=== PATIENT | male | born 1950 | race Caucasian/White ===

== ENCOUNTER → 2018-09-06 09:38 | Outpatient (CLI) | payer BC, MEDICARE, SELFPAY | PROVIDERS: PCP Family Medicine; Visit Provider Family Medicine | DX: E11.621 Type 2 diabetes mellitus with foot ulcer (principal); L97.522 Non-pressure chronic ulcer of other part of left foot with fat layer exposed; L97.512 Non-pressure chronic ulcer of other part of right foot with fat layer exposed; L08.9 Local infection of the skin and subcutaneous tissue, unspecified | CPT/HCPCS: 11042; 87070; 87075; 87077; 87147; 87186; 87205; 99214 ==

== ENCOUNTER 2018-09-11 14:18 | Emergency (ER) | payer BC, MEDICARE, SELFPAY ==
[2018-09-11 14:25] VITALS: BP 149/81; PULSE 69; RESP 20; TEMP 36.1; O2SAT 95; BMI 33.6
--- NOTE | 2018-09-11 16:02 | ED.RECABL ---
HPI - Recheck/Abnormal Lab/Rx <Charlene Yung PA-C - Last Filed: 09/11/18 22:36> General Chief Complaint: Recheck/Abnormal Lab/Rx Stated Complaint: WOUND CULTURE CAME BACK WITH [facility] Time Seen by Provider: 09/11/18 16:17 Source: patient and old records reviewed Mode of arrival: ambulatory Limitations: no limitations History of Present Illness HPI narrative: This 68-year-old gentleman is sent to ED by the nurse from [facility] due to recent culture coming back showing E coli. He he was treated for a chronic right foot ulceration. He states that this is looking much better after Dr. Xiong debrided it. He has not had any new drainage, worsening pain or swelling. Wound has not been red. He has not had any new fever. He has been taking doxycycline for about 5 days. His PCP called him today and sent in a prescription for Levaquin for him and advised changing to this. He states that he has had some ongoing fatigue and poor appetite for at least 10 days, but again no fever. He denies any chest or abdominal pain. No difficulty breathing or pain in the extremities. He is not feeling any different today than prior to his last wound care visit aside from the wound actually being better. Review of Systems <Charlene Yung PA-C - Last Filed: 09/11/18 22:36> Review of Systems All systems reviewed & are unremarkable except as noted in HPI and below Exam <Charlene Yung PA-C - Last Filed: 09/11/18 22:36> Narrative Exam Narrative: GENERAL APPEARANCE: Patient sitting comfortably, appears well LUNGS: Clear to auscultation bilaterally. HEART: Rate and rhythm regular without murmur, normal S1 and S2, no S3 or S4. DERMATOLOGIC: L. 1st MT head there is a debrided wound, not actively draining, but there is some serous drainage on the dressing. No erythema, effusion or tenderness Initial Vital Signs Initial Vital Signs: Vital Signs Temperature 97.0 F L 09/11/18 14:25 Pulse Rate 69 09/11/18 14:25 Respiratory Rate 20 09/11/18 14:25 Blood Pressure 149/81 H 09/11/18 14:25 Pulse Oximetry 95 09/11/18 14:25 <Rylie Kemp DO - Last Filed: 09/12/18 19:56> Initial Vital Signs Initial Vital Signs: Vital Signs Temperature 97.0 F L 09/11/18 14:25 Pulse Rate 69 09/11/18 14:25 Respiratory Rate 20 09/11/18 14:25 Blood Pressure 149/81 H 09/11/18 14:25 Pulse Oximetry 95 09/11/18 14:25 Course <Charlene Yung PA-C - Last Filed: 09/11/18 22:36> Course Narrative: Patient is feeling at baseline today. He has not had any acute changes and in fact his ft wound is getting better. Not clear whether E coli finding on his culture was a contaminant. He has been on appropriate antibiotics to treat the 3 strains of staphylococci is on the culture, and susceptible to Levaquin which has already been prescribed by his PCP. He will pick this up today and started, and will follow up with her as planned tomorrow. Advised to discuss his ongoing fatigue at that time. Orders Ordered: ED Orders 09/11/18 14:08 Complete Blood Count AUTO DIFF Stat Comprehensive Metabolic Panel Stat Lactate (Lactic Acid) Stat Vital Signs - 8 hr 09/11/18 17:15 Pulse Rate 66 Respiratory Rate 20 Blood Pressure 144/83 H Pulse Oximetry 95 <Rylie Kemp DO - Last Filed: 09/12/18 19:56> Orders Ordered: ED Orders 09/11/18 14:08 Complete Blood Count AUTO DIFF Stat Comprehensive Metabolic Panel Stat Lactate (Lactic Acid) Stat Vital Signs - 8 hr 09/11/18 17:15 Pulse Rate 66 Respiratory Rate 20 Blood Pressure 144/83 H Pulse Oximetry 95 MDM - Recheck/Abnormal Lab/Rx <Charlene Yung PA-C - Last Filed: 09/11/18 22:36> Lab Data Attestation: I reviewed the patient's lab results. Result diagrams: 09/11/18 14:08 09/11/18 14:08 Lab Results 09/11/18 09/11/18 09/11/18 Range/Units 14:08 14:08 14:08 WBC 8.6 (4.5-11.0) X10^3/uL RBC 5.35 (4.5-5.9) X10^6/uL Hgb 15.6 (13.5-17.5) g/dL Hct 46.5 (41-53) % MCV 86.9 (80-100) fL MCH 29.2 (26-34) PG MCHC 33.6 (30-36) % RDW 13.5 (11.6-14.8) % Plt Count 257 (150-400) X10^3/uL Neut % (Auto) 66.6 (50-75) % Lymph % (Auto) 21.9 L (25-40) % [place] % (Auto) 7.9 (3-14) % Eos % (Auto) 2.8 (2-4) % Baso % (Auto) 0.8 (0-2) % Neut # (Auto) 5700 (9817-0320) /uL Sodium 141 (137-145) mmol/L Potassium 3.8 (3.4-5.1) mmol/L Chloride 103 (98-107) mmol/L Carbon Dioxide 24 (22-32) mmol/L BUN 19 (9-20) mg/dL Creatinine 0.60 L (0.66-1.25) mg/dL Estimated GFR > 60.0 (>60) mL/min BUN/Creatinine Ratio 31.7 H (6-22) Glucose 161 H (80-110) mg/dL Lactate 1.5 (0.7-2.1) mmol/L Calcium 9.4 (8.4-10.2) mg/dL Total Bilirubin 0.3 (0.2-1.3) mg/dL AST 20 (17-59) IU/L ALT 28 (21-72) IU/L Alkaline Phosphatase 81 (38-126) U/L Total Protein 7.4 (6.3-8.2) g/dL Albumin 4.3 (3.5-5.0) g/dL Globulin 3.1 (1.7-4.1) g/dL Albumin/Globulin Ratio 1.4 (1.0-2.8) <Rylie Kemp, DO - Last Filed: 09/12/18 19:56> Lab Data Lab Results 09/11/18 09/11/18 09/11/18 Range/Units 14:08 14:08 14:08 WBC 8.6 (4.5-11.0) X10^3/uL RBC 5.35 (4.5-5.9) X10^6/uL Hgb 15.6 (13.5-17.5) g/dL Hct 46.5 (41-53) % MCV 86.9 (80-100) fL MCH 29.2 (26-34) PG MCHC 33.6 (30-36) % RDW 13.5 (11.6-14.8) % Plt Count 257 (150-400) X10^3/uL Neut % (Auto) 66.6 (50-75) % Lymph % (Auto) 21.9 L (25-40) % [place] % (Auto) 7.9 (3-14) % Eos % (Auto) 2.8 (2-4) % Baso % (Auto) 0.8 (0-2) % Neut # (Auto) 5700 (5921-5266) /uL Sodium 141 (137-145) mmol/L Potassium 3.8 (3.4-5.1) mmol/L Chloride 103 (98-107) mmol/L Carbon Dioxide 24 (22-32) mmol/L BUN 19 (9-20) mg/dL Creatinine 0.60 L (0.66-1.25) mg/dL Estimated GFR > 60.0 (>60) mL/min BUN/Creatinine Ratio 31.7 H (6-22) Glucose 161 H (80-110) mg/dL Lactate 1.5 (0.7-2.1) mmol/L Calcium 9.4 (8.4-10.2) mg/dL Total Bilirubin 0.3 (0.2-1.3) mg/dL AST 20 (17-59) IU/L ALT 28 (21-72) IU/L Alkaline Phosphatase 81 (38-126) U/L Total Protein 7.4 (6.3-8.2) g/dL Albumin 4.3 (3.5-5.0) g/dL Globulin 3.1 (1.7-4.1) g/dL Albumin/Globulin Ratio 1.4 (1.0-2.8) Discharge Plan Departure Patient Disposition: Home Clinical Impression: Wound of foot Discharge Date/Time: 09/11/18 17:15 Interventions: ED Discharge Assessment Last Done: 09/11/18 17:15 Instructions: Skin Wound Activity Restrictions/Additional Instructions: Please return if you have any acutely worsening symptoms. There are no acute problems found on your lab work and since you have not had any changes in how your feeling today, it is reasonable for you to return home. Change your doxycycline to the Levaquin that Dr. Allred sent in for you. Please see here for follow-up tomorrow as you have planned, and let her know about your ongoing fatigue and poor appetite as well as your elevated morning blood sugar as these could be related. Continue your current wound care as advised by Dr. Xiong Referrals: Michael Xiong MD [Physician] - Sam Allred DO [Primary Care Provider] - <Rylie Kemp DO - Last Filed: 09/12/18 19:56> Cosign ED Attending Alysonature Attestation: I was immediately available in the department for consultation. Documentation has been reviewed. I agree with assessment and plan.
[2018-09-11 16:16] LABS: Add Manual Diff / Slide Review NO; Basophils Percent Auto 0.8 % (0-2); Eosinophils Percent Auto 2.8 % (2-4); Hematocrit 46.5 % (41-53); Hemoglobin 15.6 g/dL (13.5-17.5); Lymphocytes Percent Auto 21.9 % (25-40); Mean Corpuscular HGB Conc 33.6 % (30-36); Mean Corpuscular Hemoglobin 29.2 PG (26-34); Mean Corpuscular Volume 86.9 fL (80-100); Monocytes Percent Auto 7.9 % (3-14); Neutrophils Absolute Auto 5700 /uL (1500-7000); Neutrophils Percent Auto 66.6 % (50-75); Platelet Count 257 X10^3/uL (150-400); Red Blood Cell Count 5.35 X10^6/uL (4.5-5.9); Red Cell Distribution Width 13.5 % (11.6-14.8); White Blood Cell Count 8.6 X10^3/uL (4.5-11.0)
--- NOTE | 2018-09-11 16:18 | PC.NURSE ---
Sent from wound clinic as wound on foot cultured e coli. Labs drawn. Provider to see
[2018-09-11 16:25] LABS: Alanine Aminotransferase 28 IU/L (21-72); Albumin 4.3 g/dL (3.5-5.0); Albumin Globulin Ratio 1.4 (1.0-2.8); Alkaline Phosphatase 81 U/L (38-126); Aspartate Aminotransferase 20 IU/L (17-59); BUN Creatinine Ratio 31.7 (6-22); Bilirubin Total 0.3 mg/dL (0.2-1.3); Blood Urea Nitrogen 19 mg/dL (9-20); Calcium 9.4 mg/dL (8.4-10.2); Carbon Dioxide 24 mmol/L (22-32); Chloride 103 mmol/L (98-107); Estimated Glomerular Filt Rate > 60.0 mL/min (>60); Globulin 3.1 g/dL (1.7-4.1); Glucose 161 mg/dL (80-110); HEMOLYSIS < 15 (0-50); Potassium 3.8 mmol/L (3.4-5.1); Sodium 141 mmol/L (137-145); Total Protein 7.4 g/dL (6.3-8.2)
[2018-09-11 16:26] LABS: Lactate (Lactic Acid) 1.5 mmol/L (0.7-2.1)
[2018-09-11 17:15] VITALS: BP 144/83; PULSE 66; RESP 20; O2SAT 95
== END 2018-09-11 17:15 | disposition home or self-care (01) ==
PROVIDERS: Emergency Provider Internal Medicine; PCP Family Medicine
DX: L97.519 Non-pressure chronic ulcer of other part of right foot with unspecified severity (principal); B96.20 Unspecified Escherichia coli [E. coli] as the cause of diseases classified elsewhere
CPT/HCPCS: 36415; 80053; 83605; 85025; 99282; 99283

== ENCOUNTER → 2018-09-20 14:06 | Outpatient (CLI) | payer BC, MEDICARE, SELFPAY | PROVIDERS: PCP Family Medicine; Visit Provider Family Medicine | DX: E11.621 Type 2 diabetes mellitus with foot ulcer (principal); L97.521 Non-pressure chronic ulcer of other part of left foot limited to breakdown of skin; L97.511 Non-pressure chronic ulcer of other part of right foot limited to breakdown of skin; L08.9 Local infection of the skin and subcutaneous tissue, unspecified | CPT/HCPCS: 11042 ==

== ENCOUNTER → 2018-09-25 14:26 | Outpatient (CLI) | payer BC, MEDICARE, SELFPAY | PROVIDERS: PCP Family Medicine; Visit Provider Family Medicine | DX: E11.621 Type 2 diabetes mellitus with foot ulcer (principal); E11.40 Type 2 diabetes mellitus with diabetic neuropathy, unspecified; L97.521 Non-pressure chronic ulcer of other part of left foot limited to breakdown of skin; L97.511 Non-pressure chronic ulcer of other part of right foot limited to breakdown of skin; L08.9 Local infection of the skin and subcutaneous tissue, unspecified | CPT/HCPCS: 97597 ==

== ENCOUNTER → 2018-10-02 10:03 | Outpatient (CLI) | payer BC, MEDICARE, SELFPAY | PROVIDERS: PCP Family Medicine; Visit Provider Family Medicine | DX: E11.621 Type 2 diabetes mellitus with foot ulcer (principal); L97.521 Non-pressure chronic ulcer of other part of left foot limited to breakdown of skin; L97.511 Non-pressure chronic ulcer of other part of right foot limited to breakdown of skin | CPT/HCPCS: 97597 ==

== ENCOUNTER → 2018-10-07 08:55 | Outpatient (CLI) | payer BC, MEDICARE, SELFPAY | PROVIDERS: PCP Family Medicine; Visit Provider Family Medicine | DX: E11.621 Type 2 diabetes mellitus with foot ulcer (principal); L97.511 Non-pressure chronic ulcer of other part of right foot limited to breakdown of skin | CPT/HCPCS: 11042 ==

== ENCOUNTER → 2018-10-14 08:45 | Outpatient (CLI) | payer BC, MEDICARE, SELFPAY | PROVIDERS: PCP Family Medicine; Visit Provider Podiatrist Primary Podiatric Medicine | DX: E11.621 Type 2 diabetes mellitus with foot ulcer (principal); L97.512 Non-pressure chronic ulcer of other part of right foot with fat layer exposed | CPT/HCPCS: 11042 ==

== ENCOUNTER → 2018-10-22 13:16 | Outpatient (CLI) | payer BC, MEDICARE, SELFPAY | PROVIDERS: PCP Family Medicine; Visit Provider Family Medicine | DX: E11.621 Type 2 diabetes mellitus with foot ulcer (principal); L97.516 Non-pressure chronic ulcer of other part of right foot with bone involvement without evidence of necrosis | CPT/HCPCS: 11042; 87070; 87075; 87077; 87147; 87186; 87205 ==

== ENCOUNTER → 2018-10-31 09:35 | Outpatient (CLI) | payer BC, MEDICARE, SELFPAY | PROVIDERS: PCP Family Medicine; Visit Provider Family Medicine | DX: E11.621 Type 2 diabetes mellitus with foot ulcer (principal); L97.514 Non-pressure chronic ulcer of other part of right foot with necrosis of bone | CPT/HCPCS: 20220; 87070; 87075; 87077; 87186; 87205; 99213 ==

== ENCOUNTER → 2018-11-04 09:17 | Outpatient (CLI) | payer BC, MEDICARE, SELFPAY ==
--- NOTE | 2018-11-04 | DI.RAD.S_ITS ---
PROCEDURE: XR FOOT RT MIN 3V INDICATIONS: Type 2 diabetes mellitus with foot ulcer/EVAL FOR OSTEO TECHNIQUE: 3 views of the foot were acquired. COMPARISON: [facility], CR, TOE MINIMUM 2 VIEWS RIGHT, 03/14/2017, 9:07. [facility], CR, XR TOE(S) RIGHT, 08/29/2017, 13:45. FINDINGS: Bones: Prior amputation of the second digit from the metatarsal head level and the third digit has been amputated from the proximal phalangeal base level. Osteolucency involves the second metatarsal head as well as the fifth distal interphalangeal joint. Moderate hallux valgus metatarsus prima varus alignment redemonstrated and medial bunion. Calcaneal spurring. Soft tissues: No tibiotalar joint effusion. Achilles tendon appears normal. Soft tissue gas noted within the soft tissues adjacent to the second and third metatarsal heads. IMPRESSION: 1. Prior amputations as above. 2. Bony osteolucency involving the second metatarsal head and fifth distal phalanx suspicious for osteomyelitis. Dictated by: Sherwin MAGANA Interpreted: Stanislav Bundy MD on 11/04/2018 at 9:50 Approved by: Stanislav Bundy M.D. on 11/04/2018 at 14:19
[2018-11-04 10:10] LABS: Add Manual Diff / Slide Review NO; Basophils Absolute Auto 100 /uL (0-100); Basophils Percent Auto 0.8 % (0-2); Eosinophils Absolute Auto 200 /uL (0-450); Eosinophils Percent Auto 2.5 % (2-4); Hematocrit 47.1 % (41-53); Lymphocytes Absolute Auto 1500 /uL (1100-4500); Lymphocytes Percent Auto 19.3 % (25-40); Mean Corpuscular HGB Conc 31.9 % (30-36); Mean Corpuscular Volume 87.8 fL (80-100); Monocytes Absolute Auto 600 /uL (0-900); Monocytes Percent Auto 7.7 % (3-14); Neutrophils Absolute Auto 5500 /uL (1500-7000); Neutrophils Percent Auto 69.7 % (50-75); Platelet Count 306 X10^3/uL (150-400); Red Blood Cell Count 5.36 X10^6/uL (4.5-5.9); Red Cell Distribution Width 13.6 % (11.6-14.8)
[2018-11-04 10:32] LABS: Alanine Aminotransferase 24 IU/L (21-72); Albumin 4.3 g/dL (3.5-5.0); Albumin Globulin Ratio 1.5 (1.0-2.8); Alkaline Phosphatase 74 U/L (38-126); Aspartate Aminotransferase 17 IU/L (17-59); BUN Creatinine Ratio 22.9 (6-22); Bilirubin Total 0.4 mg/dL (0.2-1.3); Blood Urea Nitrogen 16 mg/dL (9-20); C-Reactive Protein Quant 0.6 mg/dL (<1.0); Calcium 9.3 mg/dL (8.4-10.2); Carbon Dioxide 29 mmol/L (22-32); Chloride 99 mmol/L (98-107); Estimated Glomerular Filt Rate > 60.0 mL/min (>60); Globulin 2.9 g/dL (1.7-4.1); Glucose 263 mg/dL (80-110); HEMOLYSIS < 15 (0-50); Potassium 4.2 mmol/L (3.4-5.1); Sodium 138 mmol/L (137-145); Total Protein 7.2 g/dL (6.3-8.2)
[2018-11-04 10:36] LABS: Erythrocyte Sedimentation Rate 6 MM/HR (0-15)
[2018-11-04 10:37] LABS: Hemoglobin A1C% w Est Avg Glu 10.4 % (4.0-6.0)
[2018-11-04 10:38] LABS: Prealbumin 30.9 mg/dL (17.6-36.0)
== END ==
PROVIDERS: PCP Family Medicine; Visit Provider Family Medicine
DX: E11.621 Type 2 diabetes mellitus with foot ulcer (principal); L97.519 Non-pressure chronic ulcer of other part of right foot with unspecified severity; M77.31 Calcaneal spur, right foot; Z89.421 Acquired absence of other right toe(s)
CPT/HCPCS: 36415; 73630; 80053; 83036; 84134; 85025; 85651; 86140

== ENCOUNTER → 2018-11-06 08:36 | Outpatient (CLI) | payer BC, MEDICARE, SELFPAY | PROVIDERS: PCP Family Medicine; Visit Provider Family Medicine | DX: E11.621 Type 2 diabetes mellitus with foot ulcer (principal); L97.514 Non-pressure chronic ulcer of other part of right foot with necrosis of bone; M86.171 Other acute osteomyelitis, right ankle and foot | CPT/HCPCS: 99214 ==

== ENCOUNTER → 2018-11-13 08:45 | Outpatient (CLI) | payer BC, MEDICARE, SELFPAY | PROVIDERS: PCP Family Medicine; Visit Provider Family Medicine | DX: E11.621 Type 2 diabetes mellitus with foot ulcer (principal); L97.514 Non-pressure chronic ulcer of other part of right foot with necrosis of bone; M86.171 Other acute osteomyelitis, right ankle and foot | CPT/HCPCS: 93922; 99213 ==

== ENCOUNTER → 2018-11-21 14:07 | Outpatient (CLI) | payer BC, MEDICARE, SELFPAY | PROVIDERS: PCP Family Medicine; Visit Provider Family Medicine | DX: E11.621 Type 2 diabetes mellitus with foot ulcer (principal); L97.514 Non-pressure chronic ulcer of other part of right foot with necrosis of bone; M86.171 Other acute osteomyelitis, right ankle and foot | CPT/HCPCS: 11042; 99213 ==

== ENCOUNTER → 2018-11-28 13:44 | Outpatient (CLI) | payer BC, MEDICARE, SELFPAY | PROVIDERS: PCP Family Medicine; Visit Provider Family Medicine | DX: E11.621 Type 2 diabetes mellitus with foot ulcer (principal); L97.514 Non-pressure chronic ulcer of other part of right foot with necrosis of bone; M86.171 Other acute osteomyelitis, right ankle and foot | CPT/HCPCS: 99213 ==

== ENCOUNTER → 2018-12-05 08:58 | Outpatient (CLI) | payer BC, MEDICARE, SELFPAY | PROVIDERS: PCP Family Medicine; Visit Provider Family Medicine | DX: E11.621 Type 2 diabetes mellitus with foot ulcer (principal); L97.514 Non-pressure chronic ulcer of other part of right foot with necrosis of bone; M86.171 Other acute osteomyelitis, right ankle and foot | CPT/HCPCS: 11042 ==

== ENCOUNTER → 2018-12-12 09:28 | Outpatient (CLI) | payer BC, MEDICARE, SELFPAY | PROVIDERS: PCP Family Medicine; Visit Provider Family Medicine | DX: E11.621 Type 2 diabetes mellitus with foot ulcer (principal); L97.516 Non-pressure chronic ulcer of other part of right foot with bone involvement without evidence of necrosis; M86.171 Other acute osteomyelitis, right ankle and foot | CPT/HCPCS: 11042 ==

== ENCOUNTER → 2019-03-17 10:12 | Outpatient (CLI) | payer BC, MEDICARE, SELFPAY | PROVIDERS: PCP Family Medicine; Visit Provider Podiatrist Primary Podiatric Medicine | DX: E11.621 Type 2 diabetes mellitus with foot ulcer (principal); L97.516 Non-pressure chronic ulcer of other part of right foot with bone involvement without evidence of necrosis; L97.421 Non-pressure chronic ulcer of left heel and midfoot limited to breakdown of skin; L84 Corns and callosities; M79.672 Pain in left foot; M79.671 Pain in right foot | CPT/HCPCS: 87070; 87075; 87205 ==

== ENCOUNTER 2019-03-17 10:47 | Emergency (ER) | payer BC, MEDICARE, SELFPAY ==
[2019-03-17] VITALS (7 sets, daily range): BP systolic 124–147; BP diastolic 73–82; PULSE 64–100; RESP 22; TEMP 36.5; O2SAT 93–99
--- NOTE | 2019-03-17 12:36 | ED.SKABFB ---
HPI - Skin/Abscess/Foreign Bdy General Chief complaint: Skin/Abscess/Foreign Body Stated complaint: pressure ulcers Time Seen by Provider: 03/17/19 11:46 Source: patient Mode of arrival: ambulatory Limitations: no limitations History of Present Illness HPI narrative: Patient is sent to the emergency department by wound Care [facility] for an ulcer on his right foot plantar surface. 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 He was seen within the last couple of months for an ulcer at the base of the amputated toes at the [facility] Care [facility], but the ulcer seem to be getting better, and patient had not been to the clinic in some time. Patient states that all of a sudden, the area flared up again and opened up, which prompted him to see his primary doctor. Primary doctor put him on ciprofloxacin, and patient followed up on wound care clinic today. The clinic called to say they were sending him to the emergency department to be evaluated for possible IV antibiotics. The patient denies fevers. He states he has had some night sweats and has felt occasionally chilled. He denies any redness in the foot or streaking up his leg. He states that he feels at baseline otherwise. He has had what sounds like serous type drainage from the area. No new injury. Patient states he is allergic to Septra. No other complaints at this time. W[facility] Care Clinic does state that there is bone in the floor of the wound, and that they did biopsy the bone to evaluate for osteomyelitis. Related Data Home Medications Medication Instructions Recorded Confirmed amlodipine 10 mg PO DAILY 03/17/19 03/17/19 aspirin 81 mg PO DAILY 03/17/19 03/17/19 carvedilol 25 mg PO BID 03/17/19 03/17/19 ciprofloxacin 500 mg PO [id number] 03/17/19 03/17/19 gabapentin 300 mg PO BID 03/17/19 03/17/19 hydrochlorothiazide 25 mg PO DAILY 03/17/19 03/17/19 insulin glargine [Lantus U-100 45 unit SUBCUT BEDTIME 03/17/19 03/17/19 Insulin] insulin regular human 20 units SUBCUT TID 03/17/19 03/17/19 lisinopril 40 mg PO DAILY 03/17/19 03/17/19 multivitamin 1 tab PO DAILY 03/17/19 03/17/19 oxybutynin chloride 5 mg PO BID 03/17/19 03/17/19 sertraline [Zoloft] 100 mg PO DAILY 03/17/19 03/17/19 sildenafil 100 mg PO DAILY PRN 03/17/19 03/17/19 simvastatin 40 mg PO QPM 03/17/19 03/17/19 Allergies Allergy/AdvReac Type Severity Reaction Status Date / Time penicillin V Allergy Severe Anaphylaxis Verified 03/17/19 10:53 sulfamethoxazole Allergy Unknown Verified 03/17/19 11:25 [From ] trimethoprim [From ] Allergy Unknown Verified 03/17/19 11:25 Review of Systems Constitutional Denies chills, Denies fever(s), Denies lethargy and Denies weakness Eyes Denies change in vision, Denies eye discharge, Denies irritation and Denies loss of vision ENT Ears, Nose, Mouth, and Throat: Denies change in voice, Denies neck pain and Denies sore throat Cardiovascular Denies chest pain, Denies irregular heart rhythm, Denies lightheadedness, Denies palpitations, Denies dyspnea, Denies dyspnea on exertion and Denies orthopnea Respiratory Denies cough, Denies dyspnea, Denies dyspnea on exertion and Denies wheezing Gastrointestinal Gastrointestinal: Denies abdominal pain, Denies change in bowel habits, Denies diarrhea, Denies nausea and Denies vomiting Genitourinary Denies hematuria, Denies flank pain, Denies urinary incontinence and Denies urinary urgency Musculoskeletal Denies neck pain Integumentary/Breasts Denies pruritus, Denies erythema, Denies rash and Denies wounds Comments: Stage IV ulcer, right foot. Neurologic Denies confusion, Denies loss of vision and Denies weakness Psychiatric Denies anxiety, Denies confusion, Denies depression, Denies homicidal ideation and Denies suicidal ideation Endocrine Denies palpitations Hematologic/Lymphatic Denies easy bruising Allergic/Immunologic Denies wheezing [facility] Medical History CAD (coronary artery disease) (Chronic) Depression (Chronic) Diabetic neuropathy (Chronic) HTN (hypertension) (Chronic) History of amputation of toe (Chronic) Hyperlipidemia (Chronic) Orthostatic hypotension (Chronic) Type 2 diabetes mellitus (Chronic) Surgical History History of ankle surgery (Resolved) Social History Smoking Status: Former smoker Social History Smoking Status: Former smoker Exam Initial Vital Signs Initial Vital Signs: Vital Signs Temperature 97.7 F 03/17/19 10:49 Pulse Rate 100 H 03/17/19 10:49 Respiratory Rate 22 03/17/19 10:49 Blood Pressure 142/81 H 03/17/19 10:49 Pulse Oximetry 99 03/17/19 10:49 Const General: cooperative and well developed Nutritional Appearance: well nourished Orientation: alert, awake, oriented x3 and not confused HENMT Head: normocephalic and atraumatic Ears: external ears normal Nose: external nose normal and No nasal discharge Face and sinus: face symmetric and No dry mucous membranes Mouth: oral mucosae normal and moist mucous membranes Teeth and gingiva: dentition normal Eyes General: appearance normal, both eyes and all related structures Eyelids: eyelids normal Conjunctivae: conjunctivae normal Sclera: sclerae normal Pupils: PERRL EOM: EOM intact bilaterally Neck Neck: normal visual inspection, trachea midline, No lymphadenopathy, No midline deformity and No JVD Lymphatic: No lymphedema Chest Chest: normal inspection of the chest Resp Effort & Inspection: normal respiratory effort, able to speak in complete sentences, no respiratory distress and no use of accessory muscles Auscultation: clear to auscultation bilaterally, no rales, no rhonchi and no wheezes Cardio Rate: regular rate Rhythm: regular rhythm Heart Sounds: no click, no gallops, no murmurs and no rubs Pulses: normal peripheral pulses GI Inspection: non-distended Palpation: soft, no hepatosplenomegaly, No guarding, No pulsatile mass and No tender Auscultation: normal bowel sounds Back/Spine/Pelvis Back: No CVA tenderness Cervical Spine: cervical ROM normal and No pain with cervical ROM Thoracic/Lumbar Spine: thoracic and lumbar spine normal to inspection Skin General: no rashes or lesions noted, No jaundice and No petechiae Other: Stage IV ulcer which is approximately 1 cm in diameter with mild soft tissue maceration for approximately 1/2 cm border around the main ulceration. The tissues otherwise looks good with no erythema or necrosis. No drainage. There is no erythema of the more distant portions of the foot, and no streaking. Minimal tenderness. Neuro General: alert, oriented x3, gait normal and no focal motor deficits Speech: speech normal Extrem General: full ROM, no clubbing, cyanosis or edema, no pedal edema and no calf tenderness Psych Appearance: well kempt Mental Status: mental status grossly normal Attitude: cooperative Thought Content: normal and suicidality Judgment: judgment good Course Course Narrative: Patient's foot, overall, looked quite good, other than a very clean-appearing, chronic ulceration on the plantar surface of the right foot. Since the patient's bone had been biopsied today, and the patient has a follow-up appointment in 2 days, I did go ahead and give the patient a dose of vancomycin IV. When the patient is seen in wound Care Clinic, and can be decided whether the course needs to be continued, based on the results of the bone biopsy. In the meantime, the patient may continue his ciprofloxacin. We have discussed the usual indications for return. Orders Ordered: Discontinued Medications Vancomycin HCl (Vancomycin) 1,000 mg in 200 mls @ 200 mls/hr IV NOW ONE Stop: 03/17/19 13:34 Last Infusion: 03/17/19 14:16 Dose: 0 mls/hr Infusion: 03/17/19 13:05 Dose: 150 mls/hr Infusion: 03/17/19 12:56 Dose: 0 mls/hr Admin: 03/17/19 12:46 Dose: 200 mls/hr Ondansetron HCl (Zofran) 4 mg IV NOW ONE Stop: 03/17/19 13:06 Last Admin: 03/17/19 13:05 Dose: 4 mg Vital Signs - 8 hr 03/17/19 10:49 03/17/19 12:00 Temperature 97.7 F Pulse Rate 100 H 66 Respiratory Rate 22 Blood Pressure 142/81 H Blood Pressure [Right Arm] 147/82 H Pulse Oximetry 99 94 MDM - Skin/Abscess/Foreign Bdy Medical Records Attestation: I reviewed the patient's medical records. Discharge Plan Departure Patient Disposition: Home Clinical Impression: Diabetic foot ulcer Qualifiers: Diabetic foot ulcer location: unspecified part of foot Laterality: right Non-pressure ulcer stage: with bone involvement without evidence of necrosis Discharge Date/Time: 03/17/19 14:57 Interventions: ED Discharge Assessment Last Done: 03/17/19 14:56 Instructions: DI for Diabetic Foot Ulcer Activity Restrictions/Additional Instructions: You have been given an IV dose of vancomycin today. Please continue your ciprofloxacin at home. Please follow up with the [facility] on Sunday of this week, as scheduled. Prescriptions: No Action carvedilol 25 mg Tablet 25 mg PO BID RF: 0 simvastatin 40 mg Tablet 40 mg PO QPM RF: 0 gabapentin 300 mg Capsule 300 mg PO BID RF: 0 sildenafil 100 mg Tablet 100 mg PO DAILY PRN (Reason: Erectile Dysfunction) RF: 0 amlodipine 10 mg Tablet 10 mg PO DAILY RF: 0 lisinopril 40 mg Tablet 40 mg PO DAILY RF: 0 multivitamin Tablet 1 tab PO DAILY RF: 0 Lantus U-100 Insulin 100 unit/mL Solution 45 unit SUBCUT BEDTIME RF: 0 ciprofloxacin 500 mg/5 mL Suspension,Microcapsule Recon 500 mg PO [id number] RF: 0 sertraline [Zoloft] 100 mg Tablet 100 mg PO DAILY RF: 0 aspirin 81 mg Tablet,Delayed Release (Dr/Ec) 81 mg PO DAILY RF: 0 insulin regular human 100 unit/mL Solution 20 units subcut TID RF: 0 hydrochlorothiazide 25 mg Tablet 25 mg PO DAILY RF: 0 oxybutynin chloride 5 mg Tablet 5 mg PO BID RF: 0 Referrals: Sam Allred DO [Primary Care Provider] -
[2019-03-17] MEDS: VANCOMYCIN 1,000 MG/200 ML PIGGYBACK 200 MG IV (12:46)
[2019-03-17] MEDS: ONDANSETRON 4 MG/2 ML INJ IV (13:05)
--- NOTE | 2019-03-17 13:08 | PC.NURSE ---
Pt states he is feeling nauseated immediately after vanco. Vanco stopped until I could inform Dr. Per Dr. Briscoe, vanco slowed down and administered 4mg zofran. Pt states he feels better. Vanco resumed at slower rate. notified.
== END 2019-03-17 14:57 | disposition home or self-care (01) ==
PROVIDERS: Emergency Provider Emergency Medicine; PCP Family Medicine
DX: E11.621 Type 2 diabetes mellitus with foot ulcer (principal); L97.519 Non-pressure chronic ulcer of other part of right foot with unspecified severity; L97.516 Non-pressure chronic ulcer of other part of right foot with bone involvement without evidence of necrosis; L97.421 Non-pressure chronic ulcer of left heel and midfoot limited to breakdown of skin; L84 Corns and callosities; M79.672 Pain in left foot; M79.671 Pain in right foot
CPT/HCPCS: 11042; 11044; 87070; 87075; 87077; 87186; 87205; 96365; 96375; 99213; 99214; 99284; J2405

== ENCOUNTER → 2019-03-19 13:14 | Outpatient (CLI) | payer BC, MEDICARE, SELFPAY | PROVIDERS: PCP Family Medicine; Visit Provider Podiatrist Primary Podiatric Medicine | DX: E11.621 Type 2 diabetes mellitus with foot ulcer (principal); L97.416 Non-pressure chronic ulcer of right heel and midfoot with bone involvement without evidence of necrosis; L97.421 Non-pressure chronic ulcer of left heel and midfoot limited to breakdown of skin; M79.672 Pain in left foot; M79.671 Pain in right foot | CPT/HCPCS: 11044; 97597 ==

== ENCOUNTER → 2019-03-19 15:01 | Outpatient (CLI) | payer BC, MEDICARE, SELFPAY ==
--- NOTE | 2019-03-19 | DI.RAD.S_ITS ---
PROCEDURE: XR FOOT LT MIN 3V INDICATIONS: Type 2 diabetes mellitus with foot ulcer TECHNIQUE: 3 views of the foot were acquired. COMPARISON: [facility], CR, XR FOOT RT MIN 3V, 11/04/2018, 9:30. FINDINGS: Bones: No fractures or dislocations. No suspicious bony lesions. Note is made of extensive osseous fusion at the midfoot and hindfoot, left foot. No definite area of osteomyelitis is seen. Soft tissues: No tibiotalar joint effusion. Achilles tendon appears normal. IMPRESSION: Prior extensive mid foot and hindfoot fusion procedures, no evidence of fusion device loosening or disruption is found. No osteomyelitis seen. Area of ulceration is not defined by the clinical history provided. Dictated by: Stanislav Bundy M.D. on 03/19/2019 at 16:01 Approved by: Stanislav Bundy M.D. on 03/19/2019 at 16:03
--- NOTE | 2019-03-19 | DI.RAD.S_ITS ---
PROCEDURE: XR FOOT RT MIN 3V INDICATIONS: Type 2 diabetes mellitus with foot ulcer TECHNIQUE: 3 views of the foot were acquired. COMPARISON: [facility], CR, XR FOOT RT MIN 3V, 11/04/2018, 9:30. FINDINGS: Bones: No fractures or dislocations. There has been mild interval but definite increased ostiolysis involving the second metatarsal head. Prior subtotal amputation of the third digit is present. Ostiolysis involving the fifth distal phalanx has not progressed appreciably. Soft tissues: No tibiotalar joint effusion. Achilles tendon appears normal. IMPRESSION: Definite worsening osteomyelitis involving the second metatarsal head where small gas bubbles within the adjacent soft tissues has been previously present, and the soft tissue ulceration over this area appears to extend to the osseous margin. Dictated by: Stanislav Bundy M.D. on 03/19/2019 at 15:59 Approved by: Stanislav Bundy M.D. on 03/19/2019 at 16:01
== END ==
PROVIDERS: PCP Family Medicine; Visit Provider Podiatrist Primary Podiatric Medicine
DX: E11.621 Type 2 diabetes mellitus with foot ulcer (principal); E11.69 Type 2 diabetes mellitus with other specified complication; M86.8X7 Other osteomyelitis, ankle and foot; Z89.421 Acquired absence of other right toe(s)
CPT/HCPCS: 73630

== ENCOUNTER → 2019-03-24 14:14 | Outpatient (CLI) | payer BC, MEDICARE, SELFPAY | PROVIDERS: PCP Family Medicine; Visit Provider Podiatrist Primary Podiatric Medicine | DX: E11.621 Type 2 diabetes mellitus with foot ulcer (principal); L97.516 Non-pressure chronic ulcer of other part of right foot with bone involvement without evidence of necrosis | CPT/HCPCS: 11042 ==

== ENCOUNTER → 2019-03-31 11:33 | Outpatient (CLI) | payer BC, MEDICARE, SELFPAY | PROVIDERS: PCP Family Medicine; Visit Provider Podiatrist Primary Podiatric Medicine | DX: E11.621 Type 2 diabetes mellitus with foot ulcer (principal); L97.516 Non-pressure chronic ulcer of other part of right foot with bone involvement without evidence of necrosis; M79.671 Pain in right foot | CPT/HCPCS: 97597 ==

== ENCOUNTER → 2019-04-07 14:16 | Outpatient (CLI) | payer BC, MEDICARE, SELFPAY | PROVIDERS: PCP Family Medicine; Visit Provider Podiatrist Primary Podiatric Medicine | DX: E11.621 Type 2 diabetes mellitus with foot ulcer (principal); E11.40 Type 2 diabetes mellitus with diabetic neuropathy, unspecified; L97.516 Non-pressure chronic ulcer of other part of right foot with bone involvement without evidence of necrosis; R60.0 Localized edema | CPT/HCPCS: 11042 ==

== ENCOUNTER → 2019-04-14 14:07 | Outpatient (CLI) | payer BC, MEDICARE, SELFPAY | PROVIDERS: PCP Family Medicine; Visit Provider Podiatrist Primary Podiatric Medicine | DX: E11.621 Type 2 diabetes mellitus with foot ulcer (principal); E11.40 Type 2 diabetes mellitus with diabetic neuropathy, unspecified; L97.516 Non-pressure chronic ulcer of other part of right foot with bone involvement without evidence of necrosis | CPT/HCPCS: 11044 ==

== ENCOUNTER → 2019-04-21 10:02 | Outpatient (CLI) | payer BC, MEDICARE, SELFPAY | PROVIDERS: PCP Family Medicine; Visit Provider Podiatrist Primary Podiatric Medicine | DX: E11.621 Type 2 diabetes mellitus with foot ulcer (principal); L97.511 Non-pressure chronic ulcer of other part of right foot limited to breakdown of skin; L97.521 Non-pressure chronic ulcer of other part of left foot limited to breakdown of skin; L90.8 Other atrophic disorders of skin | CPT/HCPCS: 99214 ==

== ENCOUNTER → 2019-04-28 08:50 | Outpatient (CLI) | payer BC, MEDICARE, SELFPAY | PROVIDERS: PCP Family Medicine; Visit Provider Podiatrist Primary Podiatric Medicine | DX: E11.621 Type 2 diabetes mellitus with foot ulcer (principal); L97.416 Non-pressure chronic ulcer of right heel and midfoot with bone involvement without evidence of necrosis; R60.0 Localized edema | CPT/HCPCS: 11044 ==

== ENCOUNTER → 2019-05-05 08:48 | Outpatient (CLI) | payer BC, MEDICARE, SELFPAY | PROVIDERS: PCP Family Medicine; Visit Provider Podiatrist Primary Podiatric Medicine | DX: E11.621 Type 2 diabetes mellitus with foot ulcer (principal); E11.40 Type 2 diabetes mellitus with diabetic neuropathy, unspecified; L97.516 Non-pressure chronic ulcer of other part of right foot with bone involvement without evidence of necrosis; R60.0 Localized edema | CPT/HCPCS: 97597; 99213 ==

== ENCOUNTER → 2019-05-12 09:04 | Outpatient (CLI) | payer BC, MEDICARE, SELFPAY | PROVIDERS: PCP Family Medicine; Visit Provider Podiatrist Primary Podiatric Medicine | DX: E11.621 Type 2 diabetes mellitus with foot ulcer (principal); L97.516 Non-pressure chronic ulcer of other part of right foot with bone involvement without evidence of necrosis | CPT/HCPCS: 11042 ==

== ENCOUNTER → 2019-05-27 08:33 | Outpatient (CLI) | payer BC, MEDICARE, SELFPAY | PROVIDERS: PCP Family Medicine; Visit Provider Family Medicine | DX: E11.621 Type 2 diabetes mellitus with foot ulcer (principal); L97.514 Non-pressure chronic ulcer of other part of right foot with necrosis of bone; M86.9 Osteomyelitis, unspecified; E11.40 Type 2 diabetes mellitus with diabetic neuropathy, unspecified; Z91.19 Patient's noncompliance with other medical treatment and regimen | CPT/HCPCS: 11042; 87070; 87077; 87186; 87205; 99214 ==

== ENCOUNTER → 2019-06-02 10:28 | Outpatient (CLI) | payer BC, MEDICARE, SELFPAY | PROVIDERS: PCP Family Medicine; Visit Provider Podiatrist Primary Podiatric Medicine | DX: E11.621 Type 2 diabetes mellitus with foot ulcer (principal); L97.514 Non-pressure chronic ulcer of other part of right foot with necrosis of bone; Z91.19 Patient's noncompliance with other medical treatment and regimen | CPT/HCPCS: 11042; 99213 ==

== ENCOUNTER → 2019-06-09 08:59 | Outpatient (CLI) | payer BC, MEDICARE, SELFPAY | PROVIDERS: PCP Family Medicine; Visit Provider Podiatrist Primary Podiatric Medicine | DX: E11.621 Type 2 diabetes mellitus with foot ulcer (principal); L97.514 Non-pressure chronic ulcer of other part of right foot with necrosis of bone; Z91.19 Patient's noncompliance with other medical treatment and regimen | CPT/HCPCS: 97597; 99212 ==

== ENCOUNTER → 2019-06-16 09:41 | Outpatient (CLI) | payer BC, MEDICARE, SELFPAY | PROVIDERS: PCP Family Medicine; Visit Provider Podiatrist Primary Podiatric Medicine | DX: E11.621 Type 2 diabetes mellitus with foot ulcer (principal); L97.514 Non-pressure chronic ulcer of other part of right foot with necrosis of bone; Z91.19 Patient's noncompliance with other medical treatment and regimen | CPT/HCPCS: 15275; Q4101 ==

== ENCOUNTER → 2019-06-23 09:30 | Outpatient (CLI) | payer BC, MEDICARE, SELFPAY | PROVIDERS: PCP Family Medicine; Visit Provider Podiatrist Primary Podiatric Medicine | DX: E11.621 Type 2 diabetes mellitus with foot ulcer (principal); L97.514 Non-pressure chronic ulcer of other part of right foot with necrosis of bone; E11.40 Type 2 diabetes mellitus with diabetic neuropathy, unspecified; Z91.19 Patient's noncompliance with other medical treatment and regimen | CPT/HCPCS: 15275; Q4101 ==

== ENCOUNTER → 2019-06-30 10:09 | Outpatient (CLI) | payer BC, MEDICARE, SELFPAY | PROVIDERS: PCP Family Medicine; Visit Provider Podiatrist Primary Podiatric Medicine | DX: E11.621 Type 2 diabetes mellitus with foot ulcer (principal); L97.514 Non-pressure chronic ulcer of other part of right foot with necrosis of bone; E11.40 Type 2 diabetes mellitus with diabetic neuropathy, unspecified; R60.0 Localized edema; Z91.19 Patient's noncompliance with other medical treatment and regimen | CPT/HCPCS: 15275; Q4101 ==

== ENCOUNTER → 2019-07-07 10:07 | Outpatient (CLI) | payer BC, MEDICARE, SELFPAY | PROVIDERS: PCP Family Medicine; Visit Provider Podiatrist Primary Podiatric Medicine | DX: E11.621 Type 2 diabetes mellitus with foot ulcer (principal); L97.518 Non-pressure chronic ulcer of other part of right foot with other specified severity; Z91.19 Patient's noncompliance with other medical treatment and regimen | CPT/HCPCS: 15275; Q4101 ==

== ENCOUNTER → 2019-07-14 09:36 | Outpatient (CLI) | payer BC, MEDICARE, SELFPAY | PROVIDERS: PCP Family Medicine; Visit Provider Podiatrist Primary Podiatric Medicine | DX: E11.621 Type 2 diabetes mellitus with foot ulcer (principal); L97.511 Non-pressure chronic ulcer of other part of right foot limited to breakdown of skin; Z91.19 Patient's noncompliance with other medical treatment and regimen | CPT/HCPCS: 99213 ==

== ENCOUNTER → 2019-07-21 10:44 | Outpatient (CLI) | payer BC, MEDICARE, SELFPAY | PROVIDERS: PCP Family Medicine; Visit Provider Podiatrist Primary Podiatric Medicine | DX: E11.621 Type 2 diabetes mellitus with foot ulcer (principal); L97.518 Non-pressure chronic ulcer of other part of right foot with other specified severity; Z91.19 Patient's noncompliance with other medical treatment and regimen | CPT/HCPCS: 15275; Q4101 ==

== ENCOUNTER → 2019-08-04 09:52 | Outpatient (CLI) | payer MEDICARE, BC, SELFPAY | PROVIDERS: PCP Family Medicine; Visit Provider Podiatrist Primary Podiatric Medicine | DX: E11.621 Type 2 diabetes mellitus with foot ulcer (principal); L97.519 Non-pressure chronic ulcer of other part of right foot with unspecified severity; L97.521 Non-pressure chronic ulcer of other part of left foot limited to breakdown of skin; Z91.19 Patient's noncompliance with other medical treatment and regimen | CPT/HCPCS: 97597 ==

== ENCOUNTER → 2019-08-08 11:17 | Outpatient (CLI) | payer MEDICARE, BC, SELFPAY ==
--- NOTE | 2019-08-08 | DI.RAD.S_ITS ---
PROCEDURE: XR FOOT RT MIN 3V INDICATIONS: RIGHT FOOT PAIN TECHNIQUE: 3 views of the foot were acquired. COMPARISON: [facility], CR, XR FOOT RT MIN 3V, 03/19/2019, 15:07. FINDINGS: Bones: No fractures or dislocations. No suspicious bony lesions. Chronic fracture deformity of the second metatarsal. Amputation of the second toe the level of the distal metatarsal. Dictation of the third toe the level of the proximal phalanx. Posterior calcaneal spurring. Hallux valgus. Diffuse tarsal metatarsal joint degeneration Soft tissues: No tibiotalar joint effusion. Achilles tendon appears normal. IMPRESSION: No focal osseous destruction to suggest advanced osteomyelitis. If there is persistent clinical concern, continued short interval radiographic followup or contrast enhanced MRI could be performed to assess for early infection. Midfoot joint degeneration raising the possibility of neuropathic arthropathy. Posterior calcaneal spur Dictated by: Yogesh Trivedi M.D. on 08/08/2019 at 17:17 Approved by: Yogesh Trivedi M.D. on 08/08/2019 at 17:19
== END ==
PROVIDERS: PCP Family Medicine; Visit Provider Podiatrist Primary Podiatric Medicine
DX: E11.621 Type 2 diabetes mellitus with foot ulcer (principal); L08.9 Local infection of the skin and subcutaneous tissue, unspecified; M79.671 Pain in right foot; M19.071 Primary osteoarthritis, right ankle and foot; M77.31 Calcaneal spur, right foot
CPT/HCPCS: 73630

== ENCOUNTER → 2019-08-11 08:42 | Outpatient (CLI) | payer MEDICARE, BC, SELFPAY | PROVIDERS: PCP Family Medicine; Visit Provider Podiatrist Primary Podiatric Medicine | DX: E11.40 Type 2 diabetes mellitus with diabetic neuropathy, unspecified (principal); L97.521 Non-pressure chronic ulcer of other part of left foot limited to breakdown of skin; E11.621 Type 2 diabetes mellitus with foot ulcer; R60.0 Localized edema | CPT/HCPCS: 11042 ==

== ENCOUNTER → 2019-08-18 09:41 | Outpatient (CLI) | payer MEDICARE, BC, SELFPAY | PROVIDERS: PCP Family Medicine; Visit Provider Podiatrist Primary Podiatric Medicine | DX: L97.519 Non-pressure chronic ulcer of other part of right foot with unspecified severity (principal); L97.521 Non-pressure chronic ulcer of other part of left foot limited to breakdown of skin; E11.621 Type 2 diabetes mellitus with foot ulcer | CPT/HCPCS: 97597 ==

== ENCOUNTER → 2019-08-25 10:25 | Outpatient (CLI) | payer MEDICARE, BC, SELFPAY | PROVIDERS: PCP Family Medicine; Visit Provider Podiatrist Primary Podiatric Medicine | DX: E11.621 Type 2 diabetes mellitus with foot ulcer (principal); L89.92 Pressure ulcer of unspecified site, stage 2; L97.521 Non-pressure chronic ulcer of other part of left foot limited to breakdown of skin; E11.40 Type 2 diabetes mellitus with diabetic neuropathy, unspecified; L97.519 Non-pressure chronic ulcer of other part of right foot with unspecified severity | CPT/HCPCS: 11042 ==

== ENCOUNTER → 2019-09-15 09:42 | Outpatient (CLI) | payer MEDICARE, BC, SELFPAY | PROVIDERS: PCP Family Medicine; Visit Provider Family Medicine | DX: E11.621 Type 2 diabetes mellitus with foot ulcer (principal); L97.516 Non-pressure chronic ulcer of other part of right foot with bone involvement without evidence of necrosis; E11.40 Type 2 diabetes mellitus with diabetic neuropathy, unspecified; R60.0 Localized edema | CPT/HCPCS: 11042; 87070; 87075; 87077; 87186; 87205; 99214 ==

== ENCOUNTER → 2019-09-22 09:07 | Outpatient (CLI) | payer MEDICARE, BC, SELFPAY | PROVIDERS: PCP Family Medicine; Visit Provider Family Medicine | DX: E11.621 Type 2 diabetes mellitus with foot ulcer (principal); L97.516 Non-pressure chronic ulcer of other part of right foot with bone involvement without evidence of necrosis; M86.471 Chronic osteomyelitis with draining sinus, right ankle and foot; E11.40 Type 2 diabetes mellitus with diabetic neuropathy, unspecified; R60.0 Localized edema | CPT/HCPCS: 97597; 99214 ==

== ENCOUNTER → 2019-09-22 10:59 | Outpatient (CLI) | payer MEDICARE, BC, SELFPAY ==
--- NOTE | 2019-09-22 | DI.MRI.S_ITS ---
PROCEDURE: MR FOOT RT WO/W CON INDICATIONS: Type 2 diabetes mellitus with foot ulcer TECHNIQUE: Noncontrast coronal T1 spin echo and STIR, sagittal T1 spin echo with fat saturation and STIR, axial T1 spin echo and T2 fast spin echo with fat saturation. After the administration of contrast, axial/sagittal/coronal T1 spin echo with fat saturation through the right foot. COMPARISON: [facility], CR, XR FOOT RT MIN 3V, 08/08/2019, 11:22. FINDINGS: Image quality: Excellent. Bones: Patient is status post prior amputation of the second toe at the level of second metatarsal head. Extensive marrow edema throughout the second metatarsal shaft is seen. Fracture involving the second metatarsal stump is seen with depression of the distal fragment. Extensive bony erosive changes in this area is seen. Up to 6 mm depression at 1.2 cm overlapping is noted at fracture site. There is also marrow edema involving the first, third, fourth and fifth TMT joints most prominent involving proximal to mid shaft of third metatarsal bone. Osteoarthritic changes are noted throughout visualized midfoot and forefoot joints. No gross bony erosive changes are noted in first, third through fifth toes. Soft tissues: Extensive cellulitis is seen surrounding the second toe stump with soft tissue edema and swelling. No discrete drainable fluid collection is identified. No soft tissue masses are visualized. The scanned muscles demonstrate normal overall bulk and internal signal. IMPRESSION: 1. Prior amputation of second toe with suggestion of extensive osteomyelitis and pathologic fracture involving second metatarsal shaft stump as described above. 2. There is also suggestion of osteomyelitis involving the adjacent third metatarsal base. Osteoarthritic changes are noted in first, fourth and fifth TMT joints with no definite bony erosion to suggest osteomyelitis. 3. Extensive cellulitis in the forefoot particularly adjacent to second toe stump. No discrete abscess collection. Dictated by: Rodney Ashby M.D. on 09/22/2019 at 15:04 Approved by: Rodney Ashby M.D. on 09/22/2019 at 15:16
== END ==
PROVIDERS: Family Provider Family Medicine; PCP Family Medicine; Visit Provider Family Medicine
DX: E11.621 Type 2 diabetes mellitus with foot ulcer (principal); L97.516 Non-pressure chronic ulcer of other part of right foot with bone involvement without evidence of necrosis; L03.115 Cellulitis of right lower limb; Z89.421 Acquired absence of other right toe(s); M86.471 Chronic osteomyelitis with draining sinus, right ankle and foot; E11.40 Type 2 diabetes mellitus with diabetic neuropathy, unspecified; R60.0 Localized edema
CPT/HCPCS: 73720; 97597; A9579

== ENCOUNTER → 2019-10-07 08:50 | Outpatient (CLI) | payer MEDICARE, BC, SELFPAY | PROVIDERS: Family Provider Family Medicine; PCP Family Medicine; Visit Provider Family Medicine | DX: E11.621 Type 2 diabetes mellitus with foot ulcer (principal); L97.516 Non-pressure chronic ulcer of other part of right foot with bone involvement without evidence of necrosis; M86.471 Chronic osteomyelitis with draining sinus, right ankle and foot; E11.40 Type 2 diabetes mellitus with diabetic neuropathy, unspecified | CPT/HCPCS: 11042 ==

== ENCOUNTER → 2019-10-14 09:06 | Outpatient (CLI) | payer MEDICARE, BC, SELFPAY | PROVIDERS: Family Provider Family Medicine; PCP Family Medicine; Visit Provider Family Medicine | DX: E11.621 Type 2 diabetes mellitus with foot ulcer (principal); L97.516 Non-pressure chronic ulcer of other part of right foot with bone involvement without evidence of necrosis; M86.471 Chronic osteomyelitis with draining sinus, right ankle and foot; Z79.899 Other long term (current) drug therapy | CPT/HCPCS: 99213; 99214 ==

== ENCOUNTER → 2019-11-10 14:17 | Outpatient (CLI) | payer MEDICARE, BC, SELFPAY | PROVIDERS: Family Provider Family Medicine; PCP Family Medicine; Referring Provider Family Medicine; Visit Provider Family Medicine | DX: E11.621 Type 2 diabetes mellitus with foot ulcer (principal); E11.40 Type 2 diabetes mellitus with diabetic neuropathy, unspecified | CPT/HCPCS: 99212; 99213 ==

== ENCOUNTER → 2020-03-17 10:04 | Outpatient (CLI) | payer MEDICARE, BC, SELFPAY | PROVIDERS: Family Provider Family Medicine; PCP Family Medicine; Referring Provider Family Medicine; Visit Provider Family Medicine | DX: E11.621 Type 2 diabetes mellitus with foot ulcer (principal); L97.511 Non-pressure chronic ulcer of other part of right foot limited to breakdown of skin; L97.521 Non-pressure chronic ulcer of other part of left foot limited to breakdown of skin; L03.116 Cellulitis of left lower limb | CPT/HCPCS: 11042; 17250; 87070; 87075; 87205; 99213 ==

== ENCOUNTER → 2020-03-24 11:03 | Outpatient (CLI) | payer MEDICARE, BC, SELFPAY | PROVIDERS: Family Provider Family Medicine; PCP Family Medicine; Referring Provider Family Medicine; Visit Provider Family Medicine | DX: E11.621 Type 2 diabetes mellitus with foot ulcer (principal); L97.521 Non-pressure chronic ulcer of other part of left foot limited to breakdown of skin; L97.514 Non-pressure chronic ulcer of other part of right foot with necrosis of bone; M86.471 Chronic osteomyelitis with draining sinus, right ankle and foot | CPT/HCPCS: 11042; 97597; 99214 ==

== ENCOUNTER → 2020-04-05 12:38 | Outpatient (CLI) | payer MEDICARE, BC, SELFPAY ==
--- NOTE | 2020-04-05 | DI.RAD.S_ITS ---
PROCEDURE: XR FOOT RT 2V INDICATIONS: 2nd toe amputation TECHNIQUE: 3 views of the foot were acquired. COMPARISON: [facility], MR, MR FOOT RT WO/W CON, 09/22/2019, 11:26. [facility], CR, XR FOOT RT MIN 3V, 08/08/2019, 11:22. [facility], CR, XR FOOT RT MIN 3V, 03/19/2019, 15:07. FINDINGS: Bones: No acute fractures or dislocations. There has been slowly progressive osteolysis involving the 2nd metatarsal diaphysis, with continued shortening of the preserved portion of the more proximal diaphysis and epiphysis. A free fragment of the 2nd metatarsal diaphysis is free within the soft tissues just distal to the area of progressive osteolysis. This structure appears also to have slowly diminished in length. Soft tissues: No tibiotalar joint effusion. Achilles tendon appears normal. IMPRESSION: Continued progression of osteolytic change involving the 2nd metatarsal diaphysis and a free bone fragment within the soft tissues of the forefoot corresponding to an area of previously present 2nd metatarsal diaphysis. Progressive osteomyelitis is the presumed cause. Dictated by: Stanislav Bundy M.D. on 04/05/2020 at 14:37 Approved by: Stanislav Bundy M.D. on 04/05/2020 at 14:41
[2020-04-05 13:28] LABS: Add Manual Diff / Slide Review NO; Basophils Absolute Auto 100 /uL (0-100); Basophils Percent Auto 0.8 % (0-2); Eosinophils Absolute Auto 200 /uL (0-450); Eosinophils Percent Auto 2.2 % (2-4); Hematocrit 42.8 % (41-53); Hemoglobin 13.7 g/dL (13.5-17.5); Lymphocytes Absolute Auto 1600 /uL (1100-4500); Lymphocytes Percent Auto 21.1 % (25-40); Mean Corpuscular Hemoglobin 27.5 PG (26-34); Monocytes Absolute Auto 500 /uL (0-900); Monocytes Percent Auto 7.1 % (3-14); Neutrophils Absolute Auto 5300 /uL (1500-7000); Neutrophils Percent Auto 68.8 % (50-75); Platelet Count 326 X10^3/uL (150-400); Red Blood Cell Count 4.98 X10^6/uL (4.5-5.9); Red Cell Distribution Width 15.1 % (11.6-14.8); White Blood Cell Count 7.7 X10^3/uL (4.5-11.0)
[2020-04-05 13:49] LABS: Alanine Aminotransferase 19 IU/L (<50); Albumin 4.2 g/dL (3.5-5.0); Albumin Globulin Ratio 1.3 (1.0-2.8); Alkaline Phosphatase 67 U/L (38-126); Aspartate Aminotransferase 29 IU/L (17-59); BUN Creatinine Ratio 23.4 (6-22); Bilirubin Total 0.4 mg/dL (0.2-1.3); Blood Urea Nitrogen 15 mg/dL (9-20); C-Reactive Protein Quant 0.7 mg/dL (<1.0); Calcium 9.6 mg/dL (8.4-10.2); Carbon Dioxide 29 mmol/L (22-32); Chloride 104 mmol/L (98-107); Estimated Glomerular Filt Rate > 60.0 mL/min (>60); Globulin 3.3 g/dL (1.7-4.1); Glucose 127 mg/dL (80-110); HEMOLYSIS < 15 (0-50); Potassium 3.9 mmol/L (3.4-5.1); Sodium 140 mmol/L (137-145); Total Protein 7.5 g/dL (6.3-8.2)
[2020-04-05 13:58] LABS: Erythrocyte Sedimentation Rate 26 MM/HR (0-15)
== END ==
PROVIDERS: Family Provider Family Medicine; PCP Family Medicine; Referring Provider Family Medicine; Visit Provider Family Medicine
DX: E11.621 Type 2 diabetes mellitus with foot ulcer (principal); L97.514 Non-pressure chronic ulcer of other part of right foot with necrosis of bone; M20.61 Acquired deformities of toe(s), unspecified, right foot
CPT/HCPCS: 36415; 73620; 80053; 83036; 85025; 85651; 86140

== ENCOUNTER → 2020-04-06 11:29 | Outpatient (CLI) | payer MEDICARE, BC, SELFPAY | PROVIDERS: Family Provider Family Medicine; PCP Family Medicine; Referring Provider Family Medicine; Visit Provider Family Medicine | DX: E11.621 Type 2 diabetes mellitus with foot ulcer (principal); L97.521 Non-pressure chronic ulcer of other part of left foot limited to breakdown of skin; L97.514 Non-pressure chronic ulcer of other part of right foot with necrosis of bone; M86.471 Chronic osteomyelitis with draining sinus, right ankle and foot | CPT/HCPCS: 11042; 97597; 99213 ==

== ENCOUNTER → 2020-04-13 14:42 | Outpatient (CLI) | payer MEDICARE, BC, SELFPAY | PROVIDERS: Family Provider Family Medicine; PCP Family Medicine; Referring Provider Family Medicine; Visit Provider Family Medicine | DX: E11.621 Type 2 diabetes mellitus with foot ulcer (principal); L97.521 Non-pressure chronic ulcer of other part of left foot limited to breakdown of skin; L97.514 Non-pressure chronic ulcer of other part of right foot with necrosis of bone; M86.471 Chronic osteomyelitis with draining sinus, right ankle and foot | CPT/HCPCS: 99213 ==

== ENCOUNTER → 2020-04-20 11:36 | Outpatient (CLI) | payer MEDICARE, BC, SELFPAY | PROVIDERS: Family Provider Family Medicine; PCP Family Medicine; Referring Provider Family Medicine; Visit Provider Family Medicine | DX: E11.621 Type 2 diabetes mellitus with foot ulcer (principal); L97.514 Non-pressure chronic ulcer of other part of right foot with necrosis of bone; M86.471 Chronic osteomyelitis with draining sinus, right ankle and foot | CPT/HCPCS: 99212; 99214 ==

== ENCOUNTER → 2020-04-27 11:20 | Outpatient (CLI) | payer MEDICARE, BC, SELFPAY | PROVIDERS: Family Provider Family Medicine; PCP Family Medicine; Referring Provider Family Medicine; Visit Provider Family Medicine | DX: E11.621 Type 2 diabetes mellitus with foot ulcer (principal); L97.514 Non-pressure chronic ulcer of other part of right foot with necrosis of bone; M86.471 Chronic osteomyelitis with draining sinus, right ankle and foot; Z91.19 Patient's noncompliance with other medical treatment and regimen; E11.40 Type 2 diabetes mellitus with diabetic neuropathy, unspecified | CPT/HCPCS: 99213 ==

== ENCOUNTER → 2020-05-11 13:29 | Outpatient (CLI) | payer MEDICARE, BC, SELFPAY | PROVIDERS: Family Provider Family Medicine; PCP Family Medicine; Referring Provider Family Medicine; Visit Provider Family Medicine | DX: E11.621 Type 2 diabetes mellitus with foot ulcer (principal); L97.514 Non-pressure chronic ulcer of other part of right foot with necrosis of bone; M86.471 Chronic osteomyelitis with draining sinus, right ankle and foot; Z91.19 Patient's noncompliance with other medical treatment and regimen; I70.235 Atherosclerosis of native arteries of right leg with ulceration of other part of foot | CPT/HCPCS: 99214 ==

== ENCOUNTER 2021-11-07 22:40 | Emergency (ER) | payer MEDICARE, SELFPAY ==
[2021-11-07 22:55] VITALS: BP 135/80; PULSE 84; RESP 18; TEMP 36.8; O2SAT 96; BMI 30.7
--- NOTE | 2021-11-07 23:56 | ED_ITS ---
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 He states that he thought he may have ran it into the wall and accidentally injured it but does not remember anything specific. He denies any fever chills nor nausea or vomiting. He has extensive history with wound care but has not been on biotics in quite some time. Denies any drainage and states the redness and swelling is limited to his toe it does not involve his whole foot. Related Data Home Medications Medication Instructions Recorded Confirmed amlodipine 10 mg tablet 10 mg PO DAILY 03/17/19 03/17/19 aspirin 81 mg tablet,delayed 81 mg PO DAILY 03/17/19 03/17/19 release carvedilol 25 mg tablet 25 mg PO BID 03/17/19 03/17/19 ciprofloxacin 500 mg/5 mL oral 500 mg PO [id number] 03/17/19 03/17/19 suspension gabapentin 300 mg capsule 300 mg PO BID 03/17/19 03/17/19 hydrochlorothiazide 25 mg tablet 25 mg PO DAILY 03/17/19 03/17/19 insulin glargine 100 unit/mL 45 unit SUBCUT BEDTIME 03/17/19 03/17/19 subcutaneous solution (Lantus U-100 Insulin) insulin regular human 100 unit/mL 20 units SUBCUT TID 03/17/19 03/17/19 injection solution lisinopril 40 mg tablet 40 mg PO DAILY 03/17/19 03/17/19 multivitamin 1 tab PO DAILY 03/17/19 03/17/19 oxybutynin chloride 5 mg tablet 5 mg PO BID 03/17/19 03/17/19 sertraline 100 mg tablet (Zoloft) 100 mg PO DAILY 03/17/19 03/17/19 sildenafil 100 mg tablet 100 mg PO DAILY PRN 03/17/19 03/17/19 simvastatin 40 mg tablet 40 mg PO QPM 03/17/19 03/17/19 Previous Rx's Medication Instructions Recorded doxycycline hyclate 100 mg tablet 100 mg PO BID #20 tab 11/08/21 Allergies Allergy/AdvReac Type Severity Reaction Status Date / Time penicillin V Allergy Severe Anaphylaxis Verified 03/17/19 10:53 sulfamethoxazole Allergy Unknown Verified 03/17/19 11:25 [From ] trimethoprim [From ] Allergy Unknown Verified 03/17/19 11:25 Review of Systems Review of Systems Narrative: GENERAL: Denies chills, fatigue, malaise, fever, sweats. HEENT: Denies sinus pain, ear pain, sore throat, difficulty swallowing, dizziness. RESPIRATORY: Denies dyspnea, cough, wheezing, hemoptysis, sputum. CARDIOVASCULAR: Denies chest pain, palpitations, orthopnea, edema, GASTROINTESTINAL: Denies nausea, vomiting, abdominal pain, diarrhea, constipation, melena. : Denies dysuria, frequency, incontinence, hematuria, urinary retention. MUSCULOSKELETAL: denies weakness, joint pain, or bony pain SKIN: see HPI NEUROLOGIC: Denies weakness, headache, numbness, change in speech, confusion, seizures, incoordination. PSYCHIATRIC: No concerning psychosocial issues. 12 point review of systems is negative except for those stated above Patient History Medical History CAD (coronary artery disease) Depression Diabetic neuropathy History of amputation of toe HTN (hypertension) Hyperlipidemia Orthostatic hypotension Type 2 diabetes mellitus Surgical History History of ankle surgery Social History Smoking Status: Former smoker Smoking Status: Former smoker alcohol intake frequency: 0-2 drinks per day Substance Use Type: does not use Exam Narrative Exam Narrative: GENERAL: 71] year old patient appears stated age. Well-developed patient, in mild distress. HEAD: Atraumatic. Normocephalic. EYES: Pupils equal round and reactive. Extraocular motions intact. No scleral icterus. No injection or drainage. ENT: Nose without bleeding, purulent drainage. Throat without erythema, tonsillar hypertrophy or exudate. Airway patent. NECK: Trachea midline. Non tender CARDIOVASCULAR: Regular rate and rhythm without murmurs, gallops, or rubs. RESPIRATORY: Clear to auscultation. Breath sounds equal bilaterally. No wheezes, rales, or rhonchi. GASTROINTESTINAL: Abdomen soft, non-tender, nondistended. EXTREMITIES: left second toe swollen, ecchymotic, largely insensate, small break in the skin no obvious drainage BACK: Nontender without deformity or crepitance. No flank tenderness. NEURO: AOx3. SKIN: No rash or erythema of visible areas Initial Vital Signs Initial Vital Signs: Vital Signs Temperature 98.2 F 11/07/21 22:55 Pulse Rate 84 11/07/21 22:55 Respiratory Rate 18 11/07/21 22:55 Blood Pressure 135/80 11/07/21 22:55 Pulse Oximetry 96 11/07/21 22:55 Course Orders Ordered: ED Orders 11/07/21 23:59 XR toe LT min 2V Stat CBC Auto Diff [Complete Blood Count AUTO DIFF] Stat CMP [Comprehensive Metabolic Panel] Stat CRP [C-Reactive Protein Quant] Stat ESR [Erythrocyte Sedimentation Rate] Stat Discontinued Medications Doxycycline Hyclate (Doxycycline Hyclate 100 Mg Tablet) 100 mg PO NOW ONE Stop: 11/08/21 00:33 Last Admin: 11/08/21 00:48 Dose: 100 mg Documented by: MARSHALL Vital Signs Vital signs: Vital Signs - 8 hr 11/07/21 22:55 Temperature 98.2 F Pulse Rate 84 Respiratory Rate 18 Blood Pressure 135/80 Pulse Oximetry 96 MDM - Skin/Abscess/Foreign Bdy Lab Data Result diagrams: 11/07/21 23:59 11/07/21 23:59 Labs: Lab Results 11/07/21 11/07/21 Range/Units 23:59 23:59 WBC 13.1 H (4.5-11.0) X10^3/uL RBC 4.86 (4.5-5.9) X10^6/uL Hgb 13.5 (13.5-17.5) g/dL Hct 42.3 (41-53) % MCV 87.0 (80-100) fL MCH 27.9 (26-34) PG MCHC 32.0 (30-36) % RDW 14.8 (11.6-14.8) % Plt Count 346 (150-400) X10^3/uL Neut % (Auto) 76.1 H (50-75) % Lymph % (Auto) 14.1 L (25-40) % Alpine % (Auto) 7.6 (3-14) % Eos % (Auto) 1.3 L (2-4) % Baso % (Auto) 0.9 (0-2) % Neut # (Auto) 81956 H (9206-3503) /uL Lymph # (Auto) 1800 (8162-6768) /uL Alpine # (Auto) 1000 H (0-900) /uL Eos # (Auto) 200 (0-450) /uL Baso # (Auto) 100 (0-100) /uL ESR 63 H (0-15) MM/HR Sodium 137 (137-145) mmol/L Potassium 3.9 (3.4-5.1) mmol/L Chloride 102 (98-107) mmol/L Carbon Dioxide 28 (22-32) mmol/L BUN 20 (9-20) mg/dL Creatinine 0.71 (0.66-1.25) mg/dL Estimated GFR > 60.0 (>60) mL/min BUN/Creatinine Ratio 28.2 H (6-22) Glucose 280 H (80-110) mg/dL Calcium 9.3 (8.4-10.2) mg/dL Total Bilirubin 0.3 (0.2-1.3) mg/dL AST 19 (17-59) IU/L ALT 14 (<50) IU/L Alkaline Phosphatase 77 (38-126) U/L C-Reactive Protein 6.7 H (<1.0) mg/dL Total Protein 7.8 (6.3-8.2) g/dL Albumin 4.2 (3.5-5.0) g/dL Globulin 3.6 (1.7-4.1) g/dL Albumin/Globulin Ratio 1.2 (1.0-2.8) Imaging Data Extremity x-ray #1: Radiologist's Impression: Anderson Felix??71??M??1950 ? Allergy/Adv: penicillin V, sulfamethoxazole, trimethoprim (More??) Close Toe X-Ray (Signed) Yahir Bush - 11/07/21 Foot X-Ray (Signed) Stnaislav Bundy - 04/05/20 Foot MRI (Signed) Rodney Ashby - 09/22/19 Foot X-Ray (Signed) Yogesh Trivedi - 08/08/19 Foot X-Ray (Signed) Stanislav Bundy - 03/19/19 Foot X-Ray (Signed) Stanislav Bundy - 03/19/19 Foot X-Ray (Signed) Stanislav Bundy - 11/04/18 Launch?Image [address] [address] XRay Report Signed Patient: Anderson Felix MR#: [id number] : 1950 Acct:[id number] Age/Sex: 71 / M Date of Service: 11/07/21 Loc: ED Accession Number: [id number] ?? Procedure: XR toe LT min 2V Ordering Provider: Juan Pablo Murray D.O. PROCEDURE:? XR TOE LT MIN 2V ? INDICATIONS:? swollen, discolored, concern for osteomyelitis ? TECHNIQUE:? 3 views of the left toe(s) acquired.? ? COMPARISON:? [facility], , TOE MINIMUM 2 VIEWS RIGHT, 03/14/2017, 9:07. ? FINDINGS:? ? Bones:? Extensive deformity of multiple toes with hammertoes and probable dislocations.? No obvious plain film evidence of osteomyelitis.? Extensive midfoot surgical hardware. ? Soft tissues:? No suspicious soft tissue densities.? ? IMPRESSION:? Extensive toe deformities.? No plain film evidence of osteomyelitis. ? Comment:? Consider foot MRI with without contrast if continue to suspect osteomyelitis. ? ? Dictated by: Yahir Bush M.D. on 11/08/2021 at 0:11 ? ? Approved by: Yahir Bush M.D. on 11/08/2021 at 0:14 ? Discharge Plan Departure Patient Disposition: Home Clinical Impression: Diabetic ulcer of toe Instructions: DI for Wound Infection Activity Restrictions/Additional Instructions: *You have been diagnosed with [Toe infection without obvious signs of bone infection ] *What to do: *Please continue to take your regular medications as directed. [ x] New medication prescriptions sent to your pharmacy: [[facility] in [place] ] [ ] New medication written as a paper prescription [ ] No new medications given *Please follow up with your primary care provider in 2-3 days, call for an appointment. Let them know you were seen in the Emergency Department and that we ask that you be seen in follow up. We will electronically transmit a record of today's note if your PCP is in our system *If you do not have a primary care provider please contact the [facility] Resource line at [phone]. They will ask some questions about your medical history and help get you set up with a doctor in the community. *Return to Emergency Department if you should have any new, worsening or concerning symptoms, such as [fever greater than 101 F, shaking chills, worsening pain, persistent vomiting or other bothersome symptoms] Prescriptions: New doxycycline hyclate 100 mg tablet 100 mg PO BID Qty: 20 0RF No Action carvedilol 25 mg Tablet 25 mg PO BID 0RF simvastatin 40 mg Tablet 40 mg PO QPM 0RF gabapentin 300 mg Capsule 300 mg PO BID 0RF sildenafil 100 mg Tablet 100 mg PO DAILY PRN (Reason: Erectile Dysfunction) 0RF amlodipine 10 mg Tablet 10 mg PO DAILY 0RF lisinopril 40 mg Tablet 40 mg PO DAILY 0RF multivitamin Tablet 1 tab PO DAILY 0RF Lantus U-100 Insulin 100 unit/mL Solution 45 unit SUBCUT BEDTIME 0RF ciprofloxacin 500 mg/5 mL Suspension,Microcapsule Recon 500 mg PO [id number] 0RF Rx Instructions: start date 03/15/19 sertraline [Zoloft] 100 mg Tablet 100 mg PO DAILY 0RF aspirin 81 mg Tablet,Delayed Release (Dr/Ec) 81 mg PO DAILY 0RF insulin regular human 100 unit/mL Solution 20 units subcut TID 0RF hydrochlorothiazide 25 mg Tablet 25 mg PO DAILY 0RF oxybutynin chloride 5 mg Tablet 5 mg PO BID 0RF Referrals: Michael Xiong MD [Physician] - Sam Allred DO [Primary Care Provider] -
--- NOTE | 2021-11-07 23:59 | DI.RAD.S_ITS ---
PROCEDURE: XR TOE LT MIN 2V INDICATIONS: swollen, discolored, concern for osteomyelitis TECHNIQUE: 3 views of the left toe(s) acquired. COMPARISON: [facility], , TOE MINIMUM 2 VIEWS RIGHT, 03/14/2017, 9:07. FINDINGS: Bones: Extensive deformity of multiple toes with hammertoes and probable dislocations. No obvious plain film evidence of osteomyelitis. Extensive midfoot surgical hardware. Soft tissues: No suspicious soft tissue densities. IMPRESSION: Extensive toe deformities. No plain film evidence of osteomyelitis. Comment: Consider foot MRI with without contrast if continue to suspect osteomyelitis. Dictated by: Yahir Bush M.D. on 11/08/2021 at 0:11 Approved by: Yahir Bush M.D. on 11/08/2021 at 0:14
[2021-11-08 00:11] LABS: Add Manual Diff / Slide Review NO; Basophils Absolute Auto 100 /uL (0-100); Basophils Percent Auto 0.9 % (0-2); Eosinophils Absolute Auto 200 /uL (0-450); Eosinophils Percent Auto 1.3 % (2-4); Hematocrit 42.3 % (41-53); Hemoglobin 13.5 g/dL (13.5-17.5); Lymphocytes Absolute Auto 1800 /uL (1100-4500); Lymphocytes Percent Auto 14.1 % (25-40); Mean Corpuscular Hemoglobin 27.9 PG (26-34); Monocytes Absolute Auto 1000 /uL (0-900); Monocytes Percent Auto 7.6 % (3-14); Neutrophils Absolute Auto 10000 /uL (1500-7000); Neutrophils Percent Auto 76.1 % (50-75); Platelet Count 346 X10^3/uL (150-400); Red Blood Cell Count 4.86 X10^6/uL (4.5-5.9); Red Cell Distribution Width 14.8 % (11.6-14.8); White Blood Cell Count 13.1 X10^3/uL (4.5-11.0)
[2021-11-08 00:36] LABS: Alanine Aminotransferase 14 IU/L (<50); Albumin 4.2 g/dL (3.5-5.0); Albumin Globulin Ratio 1.2 (1.0-2.8); Alkaline Phosphatase 77 U/L (38-126); Aspartate Aminotransferase 19 IU/L (17-59); BUN Creatinine Ratio 28.2 (6-22); Bilirubin Total 0.3 mg/dL (0.2-1.3); Blood Urea Nitrogen 20 mg/dL (9-20); C-Reactive Protein Quant 6.7 mg/dL (<1.0); Calcium 9.3 mg/dL (8.4-10.2); Carbon Dioxide 28 mmol/L (22-32); Chloride 102 mmol/L (98-107); Estimated Glomerular Filt Rate > 60.0 mL/min (>60); Globulin 3.6 g/dL (1.7-4.1); Glucose 280 mg/dL (80-110); HEMOLYSIS < 15 (0-50); Potassium 3.9 mmol/L (3.4-5.1); Sodium 137 mmol/L (137-145); Total Protein 7.8 g/dL (6.3-8.2)
[2021-11-08 00:40] LABS: Erythrocyte Sedimentation Rate 63 MM/HR (0-15)
[2021-11-08] MEDS: DOXYCYCLINE HYCLATE 100 MG TABLET PO (00:48)
== END 2021-11-08 00:48 | disposition home or self-care (01) ==
PROVIDERS: Emergency Provider Emergency Medicine; Family Provider Family Medicine; PCP Family Medicine
DX: E11.621 Type 2 diabetes mellitus with foot ulcer (principal); L97.521 Non-pressure chronic ulcer of other part of left foot limited to breakdown of skin; Z79.4 Long term (current) use of insulin
CPT/HCPCS: 73660; 80053; 85025; 85651; 86140; 99283

== ENCOUNTER → 2021-12-14 14:28 | Outpatient (CLI) | payer MEDICARE, SELFPAY | PROVIDERS: Family Provider Family Medicine; PCP Family Medicine; Referring Provider Podiatrist; Visit Provider Family Medicine | DX: E11.621 Type 2 diabetes mellitus with foot ulcer (principal); L97.524 Non-pressure chronic ulcer of other part of left foot with necrosis of bone; L97.422 Non-pressure chronic ulcer of left heel and midfoot with fat layer exposed; L84 Corns and callosities; L97.512 Non-pressure chronic ulcer of other part of right foot with fat layer exposed; E11.69 Type 2 diabetes mellitus with other specified complication; M86.471 Chronic osteomyelitis with draining sinus, right ankle and foot; M86.172 Other acute osteomyelitis, left ankle and foot; R60.0 Localized edema; E11.40 Type 2 diabetes mellitus with diabetic neuropathy, unspecified; D49.2 Neoplasm of unspecified behavior of bone, soft tissue, and skin; L98.492 Non-pressure chronic ulcer of skin of other sites with fat layer exposed; R63.4 Abnormal weight loss; Z79.4 Long term (current) use of insulin; Z89.421 Acquired absence of other right toe(s); Z89.422 Acquired absence of other left toe(s) | CPT/HCPCS: 11042; 11044; 87070; 87075; 87077; 87147; 87186; 87205; 93923; 99214; 99215 ==

== ENCOUNTER → 2021-12-22 14:25 | Outpatient (CLI) | payer MEDICARE, SELFPAY | PROVIDERS: Family Provider Family Medicine; PCP Family Medicine; Referring Provider Family Medicine; Visit Provider Family Medicine | DX: E11.621 Type 2 diabetes mellitus with foot ulcer (principal); L97.524 Non-pressure chronic ulcer of other part of left foot with necrosis of bone; L97.424 Non-pressure chronic ulcer of left heel and midfoot with necrosis of bone; L97.514 Non-pressure chronic ulcer of other part of right foot with necrosis of bone; E11.69 Type 2 diabetes mellitus with other specified complication; M86.471 Chronic osteomyelitis with draining sinus, right ankle and foot; M86.172 Other acute osteomyelitis, left ankle and foot; E11.40 Type 2 diabetes mellitus with diabetic neuropathy, unspecified; S01.00XA Unspecified open wound of scalp, initial encounter; D49.2 Neoplasm of unspecified behavior of bone, soft tissue, and skin; R63.4 Abnormal weight loss; Z79.2 Long term (current) use of antibiotics; Z89.422 Acquired absence of other left toe(s); Z89.421 Acquired absence of other right toe(s) | CPT/HCPCS: 99212; 99214 ==

== ENCOUNTER → 2021-12-29 10:38 | Outpatient (CLI) | payer MEDICARE, SELFPAY | PROVIDERS: Family Provider Family Medicine; PCP Family Medicine; Referring Provider Family Medicine; Visit Provider Family Medicine | DX: E11.621 Type 2 diabetes mellitus with foot ulcer (principal); L97.524 Non-pressure chronic ulcer of other part of left foot with necrosis of bone; L97.426 Non-pressure chronic ulcer of left heel and midfoot with bone involvement without evidence of necrosis; L97.516 Non-pressure chronic ulcer of other part of right foot with bone involvement without evidence of necrosis; S01.00XA Unspecified open wound of scalp, initial encounter | CPT/HCPCS: 99214 ==

== ENCOUNTER 2022-01-04 18:42 | Emergency (ER) | payer MEDICARE, SELFPAY ==
[2022-01-04] VITALS (15 sets, daily range): BP systolic 132–163; BP diastolic 71–113; PULSE 73–135; RESP 20–30; TEMP 36.6; O2SAT 93–98; BMI 27.1
--- NOTE | 2022-01-04 18:57 | DI.RAD.S_ITS ---
PROCEDURE: XR CHEST 1V INDICATIONS: cardiac order set TECHNIQUE: One view of the chest was acquired. COMPARISON: None. FINDINGS: Surgical changes and devices: Median sternotomy and post CABG change. Lungs and pleura: Lungs are clear. No pleural effusions or pneumothorax. Mediastinum: Mediastinal contours appear normal. Heart size is normal. Bones and chest wall: No suspicious bony lesions. Degenerative endplate spurs in the thoracic spine. Overlying soft tissues appear unremarkable. IMPRESSION: 1. No acute process. 2. Surgical changes of prior CABG. Dictated by: Razia Sellers M.D. on 01/04/2022 at 19:33 Approved by: Raiza Sellers M.D. on 01/04/2022 at 19:34
[2022-01-04 19:33] LABS: Add Manual Diff / Slide Review NO; Basophils Absolute Auto 100 /uL (0-100); Basophils Percent Auto 1.1 % (0-2); Eosinophils Absolute Auto 100 /uL (0-450); Hemoglobin 15.9 g/dL (13.5-17.5); Lymphocytes Absolute Auto 2700 /uL (1100-4500); Lymphocytes Percent Auto 20.3 % (25-40); Mean Corpuscular Hemoglobin 28.6 PG (26-34); Mean Corpuscular Volume 86.8 fL (80-100); Monocytes Absolute Auto 1400 /uL (0-900); Neutrophils Absolute Auto 9100 /uL (1500-7000); Neutrophils Percent Auto 67.6 % (50-75); Platelet Count 337 X10^3/uL (150-400); Red Blood Cell Count 5.54 X10^6/uL (4.5-5.9); Red Cell Distribution Width 15.8 % (11.6-14.8); White Blood Cell Count 13.5 X10^3/uL (4.5-11.0)
[2022-01-04 19:42] LABS: Alanine Aminotransferase 24 IU/L (<50); Albumin 4.6 g/dL (3.5-5.0); Albumin Globulin Ratio 1.4 (1.0-2.8); Alkaline Phosphatase 79 U/L (38-126); Aspartate Aminotransferase 43 IU/L (17-59); Bilirubin Total 0.8 mg/dL (0.2-1.3); Blood Urea Nitrogen 20 mg/dL (9-20); Calcium 9.2 mg/dL (8.4-10.2); Carbon Dioxide 30 mmol/L (22-32); Chloride 97 mmol/L (98-107); Creatine Kinase 487 U/L (55-170); Estimated Glomerular Filt Rate > 60 mL/min (>60); Globulin 3.4 g/dL (1.7-4.1); Glucose 272 mg/dL (80-110); HEMOLYSIS 22 (0-50); Lipase 95 U/L (23-300); Magnesium 1.8 mg/dL (1.6-2.3); Potassium 4.2 mmol/L (3.4-5.1); Sodium 139 mmol/L (137-145)
[2022-01-04 19:49] LABS: COVID19 -Nasal RAPID Negative (Negative)
[2022-01-04 19:57] LABS: CKMB % Relative Index 0.8 % (1.5-5.0); Creatine Kinase MB 3.73 ng/mL (<2.37)
[2022-01-04 20:04] LABS: Troponin I < 0.012 ng/mL (0.01-0.034)
--- NOTE | 2022-01-04 20:39 | ED_ITS ---
HPI - General Adult General Chief complaint: Weakness Stated complaint: cant sleep or eat, fatigue, has melanoma Time Seen by Provider: 01/04/22 19:44 Source: patient Mode of arrival: Ambulatory History of Present Illness HPI narrative: Patient is a 71-year-old male. Does have a history of coronary artery disease. Has had a bypass graft in the past but that was years ago. Was recently diagnosed with melanoma. Has a follow-up within the next week at [facility] for this. He is here for evaluation of approximately 7-10 days of fatigue, insomnia, nausea when he eats, hypersalivation, generally not feeling well. EKG performed upon her arrival shows atrial fibrillation inpatient states he has never been diagnosed with AFib in the past. He is not on blood thinners. He has been taking all of his medications as directed. He also reports a significant weight loss in the past several months. No chest pain but is having palpitations. No lightheadedness. No fevers. No sore throat. No skin changes. No abdominal pain. No vomiting. No urinary symptoms. No change in bowel habits. No lower extremity swelling. Related Data Home Medications Medication Instructions Recorded Confirmed amlodipine 10 mg tablet 10 mg PO DAILY 03/17/19 03/17/19 aspirin 81 mg tablet,delayed 81 mg PO DAILY 03/17/19 03/17/19 release carvedilol 25 mg tablet 25 mg PO BID 03/17/19 03/17/19 ciprofloxacin 500 mg/5 mL oral 500 mg PO [id number] 03/17/19 03/17/19 suspension gabapentin 300 mg capsule 300 mg PO BID 03/17/19 03/17/19 hydrochlorothiazide 25 mg tablet 25 mg PO DAILY 03/17/19 03/17/19 insulin glargine 100 unit/mL 45 unit SUBCUT BEDTIME 03/17/19 03/17/19 subcutaneous solution (Lantus U-100 Insulin) insulin regular human 100 unit/mL 20 units SUBCUT TID 03/17/19 03/17/19 injection solution lisinopril 40 mg tablet 40 mg PO DAILY 03/17/19 03/17/19 multivitamin 1 tab PO DAILY 03/17/19 03/17/19 oxybutynin chloride 5 mg tablet 5 mg PO BID 03/17/19 03/17/19 sertraline 100 mg tablet (Zoloft) 100 mg PO DAILY 03/17/19 03/17/19 sildenafil 100 mg tablet 100 mg PO DAILY PRN 03/17/19 03/17/19 simvastatin 40 mg tablet 40 mg PO QPM 03/17/19 03/17/19 Previous Rx's Medication Instructions Recorded doxycycline hyclate 100 mg tablet 100 mg PO BID #20 tab 11/08/21 rivaroxaban 20 mg tablet (Xarelto) 20 mg PO QPM #30 tab 01/04/22 Allergies Allergy/AdvReac Type Severity Reaction Status Date / Time penicillin V Allergy Severe Anaphylaxis Verified 01/04/22 18:54 sulfamethoxazole Allergy Unknown Verified 01/04/22 18:54 [From ] trimethoprim [From ] Allergy Unknown Verified 01/04/22 18:54 Review of Systems Review of Systems ROS Unobtainable: All systems reviewed & are unremarkable except as noted in HPI and below Patient History Medical History CAD (coronary artery disease) Depression Diabetic neuropathy History of amputation of toe HTN (hypertension) Hyperlipidemia Orthostatic hypotension Type 2 diabetes mellitus Surgical History History of ankle surgery Social History Smoking Status: Former smoker Smoking Status: Former smoker alcohol intake frequency: 0-2 drinks per day Substance Use Type: does not use Exam Initial Vital Signs Initial Vital Signs: Vital Signs Temperature 97.9 F 01/04/22 18:50 Pulse Rate 73 01/04/22 18:50 Respiratory Rate 20 01/04/22 18:50 Blood Pressure 139/79 01/04/22 18:50 Pulse Oximetry 98 01/04/22 18:50 Const General: cooperative and comfortable HENMT Head: other (Quarter-size lesion/ulceration to the top of head) Chest Chest: normal inspection of the chest Resp Auscultation: clear to auscultation bilaterally Percussion: percussion normal Cardio Rate: tachycardic Rhythm: abnormal rhythm GI Inspection: normal to inspection Skin Other: Lesion to top of his head. Patient states that this was where his melanoma has been diagnosed. Neuro General: patient alert, patient awake and moves all extremities Cognition: normal cognition Speech: speech normal Extrem General: normal to inspection, capillary refill normal and no pedal edema Psych Appearance: grossly normal and well kempt Scores GCS [place] coma scale eye opening: Spontaneous [place] coma scale verbal response: Orientated Eulogio coma scale motor response: Obey commands [place] coma scale total score: 15 Course Orders Ordered: ED Orders 01/04/22 19:16 Complete Blood Count AUTO DIFF Stat Comprehensive Metabolic Panel Stat Lipase Stat Magnesium Stat Troponin & CK Cardiac Panel Stat 01/04/22 19:23 COVID19 -Nasal RAPID/Pre-Proc Stat 01/04/22 20:40 CT chest abd pel w con Stat 01/04/22 22:36 Troponin I Stat Discontinued Medications Diltiazem HCl (Diltiazem 5 Mg/Ml Sdv) 10 mg IV NOW ONE Stop: 01/04/22 20:41 Last Admin: 01/04/22 21:12 Dose: 10 mg Documented by: BRANT Diltiazem HCl 125 mg/ Dextrose 125 mls @ 5 mls/hr IV TITRATE UZMA; Protocol Last Titration: 01/04/22 22:29 Dose: 5 mg/hr, 5 mls/hr Documented by: Admin: 01/04/22 21:16 Dose: 5 mg/hr, 5 mls/hr Documented by: BRANT Metoprolol Succinate (Metoprolol Er 25 Mg Tablet) 25 mg PO NOW ONE Stop: 01/04/22 22:29 Last Admin: 01/04/22 22:43 Dose: 25 mg Documented by: BRANT Rivaroxaban (Rivaroxaban 10 Mg Tablet) 20 mg PO NOW ONE Stop: 01/04/22 22:27 Last Admin: 01/04/22 22:43 Dose: 20 mg Documented by: BRANT Vital Signs Vital signs: Vital Signs - 8 hr 01/04/22 20:30 01/04/22 21:09 01/04/22 21:15 Pulse Rate 112 H 80 131 H Respiratory Rate 24 26 H Blood Pressure 144/101 H 148/113 H Pulse Oximetry 97 94 93 01/04/22 21:16 01/04/22 21:30 01/04/22 22:00 Pulse Rate 135 H 82 88 Respiratory Rate 21 22 Blood Pressure 137/71 141/90 H 135/73 Pulse Oximetry 95 96 01/04/22 22:30 01/04/22 22:43 01/04/22 22:52 Pulse Rate 83 86 95 H Respiratory Rate Blood Pressure 163/94 H Pulse Oximetry 01/04/22 23:00 01/04/22 23:30 Pulse Rate 92 H 79 Respiratory Rate 21 Blood Pressure 155/82 H 139/93 H Pulse Oximetry 96 95 Medical Decision Making Lab Data Lab results reviewed: Yes I reviewed the patient's lab results. Result diagrams: 01/04/22 19:16 01/04/22 19:16 Labs: Lab Results 01/04/22 01/04/22 01/04/22 Range/Units 19:16 19:16 19:23 WBC 13.5 H (4.5-11.0) X10^3/uL RBC 5.54 (4.5-5.9) X10^6/uL Hgb 15.9 (13.5-17.5) g/dL Hct 48.0 (41-53) % MCV 86.8 (80-100) fL MCH 28.6 (26-34) PG MCHC 33.0 (30-36) % RDW 15.8 H (11.6-14.8) % Plt Count 337 (150-400) X10^3/uL Neut % (Auto) 67.6 (50-75) % Lymph % (Auto) 20.3 L (25-40) % [place] % (Auto) 10.0 (3-14) % Eos % (Auto) 1.0 L (2-4) % Baso % (Auto) 1.1 (0-2) % Neut # (Auto) 9100 H (2826-5180) /uL Lymph # (Auto) 2700 (5870-8656) /uL [place] # (Auto) 1400 H (0-900) /uL Eos # (Auto) 100 (0-450) /uL Baso # (Auto) 100 (0-100) /uL Sodium 139 (137-145) mmol/L Potassium 4.2 (3.4-5.1) mmol/L Chloride 97 L (98-107) mmol/L Carbon Dioxide 30 (22-32) mmol/L BUN 20 (9-20) mg/dL Creatinine 0.80 (0.66-1.25) mg/dL Estimated GFR > 60 (>60) mL/min BUN/Creatinine Ratio 25.0 H (6-22) Glucose 272 H (80-110) mg/dL Calcium 9.2 (8.4-10.2) mg/dL Magnesium 1.8 (1.6-2.3) mg/dL Total Bilirubin 0.8 (0.2-1.3) mg/dL AST 43 (17-59) IU/L ALT 24 (<50) IU/L Alkaline Phosphatase 79 (38-126) U/L Total Creatine Kinase 487 H (55-170) U/L CK-MB (CK-2) 3.73 H (<2.37) ng/mL CK-MB (CK-2) Rel Index 0.8 L (1.5-5.0) % Troponin I < 0.012 (0.01-0.034) ng/mL Total Protein 8.0 (6.3-8.2) g/dL Albumin 4.6 (3.5-5.0) g/dL Globulin 3.4 (1.7-4.1) g/dL Albumin/Globulin Ratio 1.4 (1.0-2.8) Lipase 95 (23-300) U/L SARS-CoV-2 (PCR) Negative (Negative) 01/04/22 Range/Units 22:36 WBC (4.5-11.0) X10^3/uL RBC (4.5-5.9) X10^6/uL Hgb (13.5-17.5) g/dL Hct (41-53) % MCV (80-100) fL MCH (26-34) PG MCHC (30-36) % RDW (11.6-14.8) % Plt Count (150-400) X10^3/uL Neut % (Auto) (50-75) % Lymph % (Auto) (25-40) % [place] % (Auto) (3-14) % Eos % (Auto) (2-4) % Baso % (Auto) (0-2) % Neut # (Auto) (8190-6916) /uL Lymph # (Auto) (8423-1480) /uL [place] # (Auto) (0-900) /uL Eos # (Auto) (0-450) /uL Baso # (Auto) (0-100) /uL Sodium (137-145) mmol/L Potassium (3.4-5.1) mmol/L Chloride (98-107) mmol/L Carbon Dioxide (22-32) mmol/L BUN (9-20) mg/dL Creatinine (0.66-1.25) mg/dL Estimated GFR (>60) mL/min BUN/Creatinine Ratio (6-22) Glucose (80-110) mg/dL Calcium (8.4-10.2) mg/dL Magnesium (1.6-2.3) mg/dL Total Bilirubin (0.2-1.3) mg/dL AST (17-59) IU/L ALT (<50) IU/L Alkaline Phosphatase (38-126) U/L Total Creatine Kinase (55-170) U/L CK-MB (CK-2) (<2.37) ng/mL CK-MB (CK-2) Rel Index (1.5-5.0) % Troponin I < 0.012 (0.01-0.034) ng/mL Total Protein (6.3-8.2) g/dL Albumin (3.5-5.0) g/dL Globulin (1.7-4.1) g/dL Albumin/Globulin Ratio (1.0-2.8) Lipase (23-300) U/L SARS-CoV-2 (PCR) (Negative) Imaging Data Chest x-ray: Radiologist's Impression: [address] [address] XRay Report Signed Patient: Anderson Felix MR#: [id number] : 1950 Acct:[id number] Age/Sex: 71 / M Date of Service: 01/04/22 Loc: ED Accession Number: [id number] ?? Procedure: XR chest 1V Ordering Provider: Sen Shannon D.O. PROCEDURE:? XR CHEST 1V ? INDICATIONS:? cardiac order set ? TECHNIQUE:? One view of the chest was acquired.? ? COMPARISON:? None. ? FINDINGS:? ? Surgical changes and devices:? Median sternotomy and post CABG change. ? Lungs and pleura:? Lungs are clear.? No pleural effusions or pneumothorax.? ? Mediastinum:? Mediastinal contours appear normal.? Heart size is normal.? ? Bones and chest wall:? No suspicious bony lesions.? Degenerative endplate spurs in the thoracic spine.? Overlying soft tissues appear unremarkable.? ? IMPRESSION:? ? 1. No acute process. ? 2. Surgical changes of prior CABG.? ? ? Dictated by: Razia Sellers M.D. on 01/04/2022 at 19:33 ? ? Approved by: Razia Sellers M.D. on 01/04/2022 at 19:34? CT chest/abd/pelvis: Radiologist's Impression: [address] [address] XRay Report Signed Patient: Anderson Felix MR#: [id number] : 1950 Acct:[id number] Age/Sex: 71 / M Date of Service: 01/04/22 Loc: ED Accession Number: [id number] ?? Procedure: XR chest 1V Ordering Provider: Sen Shannon D.O. PROCEDURE:? XR CHEST 1V ? INDICATIONS:? cardiac order set ? TECHNIQUE:? One view of the chest was acquired.? ? COMPARISON:? None. ? FINDINGS:? ? Surgical changes and devices:? Median sternotomy and post CABG change. ? Lungs and pleura:? Lungs are clear.? No pleural effusions or pneumothorax.? ? Mediastinum:? Mediastinal contours appear normal.? Heart size is normal.? ? Bones and chest wall:? No suspicious bony lesions.? Degenerative endplate spurs in the thoracic spine.? Overlying soft tissues appear unremarkable.? ? IMPRESSION:? ? 1. No acute process. ? 2. Surgical changes of prior CABG.? ? ? Dictated by: Razia Sellers M.D. on 01/04/2022 at 19:33 ? ? Approved by: Razia Sellers M.D. on 01/04/2022 at 19:34? ECG Data Attestation: I personally reviewed and interpreted this ECG as follows: Interpretation: Atrial fibrillation Ventricular rate 125 Normal axis Normal QRS Normal QTC Nonspecific ST T wave changes Repeat EKG Sinus rhythm Ventricular rate 81 Normal axis Normal QRS Normal QTC No ST T wave changes MDM Narrative Medical decision making narrative: Patient is in AFib with RVR. He has no diagnosis of this. Most likely his symptoms have been going on for the past 7-10 days. Not on anti coagulation. Was given Cardizem here in the emergency department after short period of time on a Cardizem drip E did spontaneously convert to sinus rhythm. After this patient states he feels much better. Most of his presenting symptoms have resolved. He has have a recent diagnosis of melanoma. Not currently undergoing any treatment. Has a follow-up within the next week for this. Given his presenting symptoms in his weight loss CT scan the chest abdomen pelvis was obtained to evaluate for metastatic disease. There is no indication of this on the CT scan. Patient was given a dose of metoprolol and he remain in sinus rhythm. Was also given a dose of Xarelto. Will send home with the doses Xarelto. He is currently on carvedilol so I will hold on prescribing any further beta blockers and he will contact his primary clamp jig assembler to discuss further evaluation and treatment of his AFib. He was given strict return precautions. He expressed understanding and agreement. Discharge Plan Departure Patient Disposition: Home Clinical Impression: Atrial fibrillation Instructions: Atrial Fibrillation Activity Restrictions/Additional Instructions: Continue to take all of your medications as directed. Tomorrow contact your clamp jig assembler to let them know that you were here in the emergency department and that you were in atrial fibrillation and converted back to normal rhythm while you are here. Keep all of your scheduled medical appointments. Return to the emergency department for any new or worsening symptoms. Prescriptions: New Xarelto 20 mg tablet 20 mg PO QPM Qty: 30 0RF Rx Instructions: must administer with evening meal No Action carvedilol 25 mg Tablet 25 mg PO BID 0RF simvastatin 40 mg Tablet 40 mg PO QPM 0RF gabapentin 300 mg Capsule 300 mg PO BID 0RF sildenafil 100 mg Tablet 100 mg PO DAILY PRN (Reason: Erectile Dysfunction) 0RF amlodipine 10 mg Tablet 10 mg PO DAILY 0RF lisinopril 40 mg Tablet 40 mg PO DAILY 0RF multivitamin Tablet 1 tab PO DAILY 0RF Lantus U-100 Insulin 100 unit/mL Solution 45 unit SUBCUT BEDTIME 0RF ciprofloxacin 500 mg/5 mL Suspension,Microcapsule Recon 500 mg PO [id number] 0RF Rx Instructions: start date 03/15/19 sertraline [Zoloft] 100 mg Tablet 100 mg PO DAILY 0RF aspirin 81 mg Tablet,Delayed Release (Dr/Ec) 81 mg PO DAILY 0RF insulin regular human 100 unit/mL Solution 20 units subcut TID 0RF hydrochlorothiazide 25 mg Tablet 25 mg PO DAILY 0RF oxybutynin chloride 5 mg Tablet 5 mg PO BID 0RF doxycycline hyclate 100 mg tablet 100 mg PO BID Qty: 20 0RF Referrals: Sam Allred DO [Primary Care Provider] -
--- NOTE | 2022-01-04 20:40 | DI.CT.S_ITS ---
PROCEDURE: CT CHEST ABD PEL W CON INDICATIONS: Current melanoma with weight loss and fatigue TECHNIQUE: After the administration of oral and intravenous contrast, axial sections acquired from the supraclavicular neck to the pubic symphysis. Coronal and sagittal reformats were performed. For radiation dose reduction, the following was used: automated exposure control, adjustment of mA and/or kV according to patient size. COMPARISON: None. FINDINGS: Image quality: Excellent. CHEST: Lower Neck: No enlarged lymph nodes. Thyroid: Within normal limits. Axillae: No enlarged lymph nodes. Chest Wall: Unremarkable. Lungs and Airways: A few small pulmonary nodules measuring at 0.4 cm or less. For example left upper lobe 0.4 cm, (3/71). Right lower lobe 0.4 cm, (3/143). There are several calcified granuloma. No acute airspace opacity. The airways are clear. Pleura: No pneumothorax or pleural effusions. Heart: Post median sternotomy. Heart size is normal. Post CABG. No pericardial effusion. Thoracic Vessels: The aorta and pulmonary arteries demonstrate normal size. Mediastinum and Nano: No enlarged lymph nodes. Esophagus: No wall thickening. No hiatal hernia. ABDOMEN: Liver: No focal lesion demonstrated. Within normal limits in size. Gallbladder: Multiple layering gallstones. Biliary ducts: Unremarkable. Pancreas: Unremarkable. Spleen: Unremarkable. Adrenal Glands: No adrenal nodule. Kidneys and Ureters: No hydronephrosis. Small bilateral renal cysts. A few cortical hypodensities which are too small to further characterize. Stomach and Bowel: Stomach is unremarkable. No small bowel obstruction. There is a prominent loop of small bowel in the right lower quadrant. No transition point. A few colonic diverticuli. Normal appendix. Peritoneum: No abnormal intraperitoneal fluid. No free air. Ventral Wall: Small umbilical hernia. Abdominal Nodes: No retroperitoneal or mesenteric adenopathy by size criteria. Vessels: Aorta and inferior vena cava are normal in size. Moderate calcified atherosclerotic plaque. PELVIS: Pelvic Organs: Unremarkable. Bladder: Unremarkable. Pelvic Nodes: No enlarged lymph nodes. Miscellaneous: No inguinal hernias are seen. Bones: No suspicious lesion identified. IMPRESSION: 1. No convincing metastatic disease. 2. A few pulmonary nodules measuring 0.4 cm. 3. No mass or adenopathy demonstrated. Dictated by: Naman Beltrán M.D. on 01/04/2022 at 21:57 Approved by: Naman Beltrán M.D. on 01/04/2022 at 22:07
[2022-01-04] MEDS: dilTIAZem 5 MG/ML SDV 10 MG IV (21:12)
[2022-01-04] MEDS: dilTIAZem 125 MG in DEXTROSE 5 % IN WATER 100 ML IV (21:16)
--- NOTE | 2022-01-04 21:50 | PC.NURSE ---
Pt resting in bed after ambulating to bathroom. Pt HR 137 Afib. given 10mg cardizem and pt started on cardizem gtt at 5mg/hr. Around 2129, Pt noted to have converted to NSR 81-85. Repeat EKG obtained. Plan is to be admitted to ICU overnight. NAD. pt denies CP,SOB. Resting comfortably on stretcher
[2022-01-04] MEDS: RIVAROXABAN 10 MG TABLET 20 MG PO (22:43)
[2022-01-04] MEDS: METOPROLOL ER 25 MG TABLET PO (22:43)
[2022-01-04 23:06] LABS: Troponin I < 0.012 ng/mL (0.01-0.034)
--- NOTE | 2022-01-04 23:20 | PC.NURSE ---
2230: Cardizem gtt stopped per Dr Shannon. Plan to repeat trop and give metoprolol and start xarelto for potential DC. 2319: 2nd trop negative. pt remains in NSR 80's s/p metoprolol. OOB to BR and states i feel better than I have in weeks ambulatory with steady gait. Awaiting further orders and potential DC.
== END 2022-01-05 | disposition home or self-care (01) ==
PROVIDERS: Emergency Provider Emergency Medicine; Family Provider Family Medicine; PCP Family Medicine
DX: I48.91 Unspecified atrial fibrillation (principal); C43.9 Malignant melanoma of skin, unspecified; Z87.891 Personal history of nicotine dependence; Z20.822 Contact with and (suspected) exposure to COVID-19
CPT/HCPCS: 36415; 71045; 71260; 74177; 80053; 82550; 82553; 83690; 83735; 84484; 85025; 87635; 93005; 96365; 96375; 99284; C9803; Q9967

== ENCOUNTER → 2022-02-20 13:23 | Outpatient (CLI) | payer MEDICARE, SELFPAY | PROVIDERS: Family Provider Family Medicine; PCP Family Medicine; Referring Provider Family Medicine; Visit Provider Family Medicine | DX: E11.621 Type 2 diabetes mellitus with foot ulcer (principal); L97.514 Non-pressure chronic ulcer of other part of right foot with necrosis of bone; E11.69 Type 2 diabetes mellitus with other specified complication; M86.471 Chronic osteomyelitis with draining sinus, right ankle and foot; M86.172 Other acute osteomyelitis, left ankle and foot; S91.302A Unspecified open wound, left foot, initial encounter; R60.0 Localized edema; C43.4 Malignant melanoma of scalp and neck; S01.00XA Unspecified open wound of scalp, initial encounter; E11.51 Type 2 diabetes mellitus with diabetic peripheral angiopathy without gangrene; E11.40 Type 2 diabetes mellitus with diabetic neuropathy, unspecified; R63.4 Abnormal weight loss; Z79.2 Long term (current) use of antibiotics; Z79.4 Long term (current) use of insulin; Z89.412 Acquired absence of left great toe; Z89.422 Acquired absence of other left toe(s); Z89.421 Acquired absence of other right toe(s); T87.81 Dehiscence of amputation stump | CPT/HCPCS: 11042; 11044; 11047; 87070; 87075; 87077; 87147; 87176; 87186; 87205; 99213; 99214 ==

== ENCOUNTER → 2022-02-21 16:36 | Outpatient (CLI) | payer MEDICARE, SELFPAY ==
[2022-02-22 11:47] LABS: COVID19 -Nasal RAPID Negative (Negative)
== END ==
PROVIDERS: Family Provider Family Medicine; PCP Family Medicine; Referring Provider Surgery Surgical Oncology; Visit Provider Surgery Surgical Oncology
DX: Z20.822 Contact with and (suspected) exposure to COVID-19 (principal)
CPT/HCPCS: 87635; C9803

== ENCOUNTER → 2022-02-27 14:10 | Outpatient (CLI) | payer MEDICARE, SELFPAY | PROVIDERS: Family Provider Family Medicine; PCP Family Medicine; Referring Provider Family Medicine; Visit Provider Family Medicine | DX: E11.621 Type 2 diabetes mellitus with foot ulcer (principal); L97.524 Non-pressure chronic ulcer of other part of left foot with necrosis of bone; T87.81 Dehiscence of amputation stump; S91.302A Unspecified open wound, left foot, initial encounter; E11.69 Type 2 diabetes mellitus with other specified complication; M86.671 Other chronic osteomyelitis, right ankle and foot; M86.172 Other acute osteomyelitis, left ankle and foot; B96.29 Other Escherichia coli [E. coli] as the cause of diseases classified elsewhere; B95.61 Methicillin susceptible Staphylococcus aureus infection as the cause of diseases classified elsewhere; S01.00XA Unspecified open wound of scalp, initial encounter; C43.4 Malignant melanoma of scalp and neck; E11.51 Type 2 diabetes mellitus with diabetic peripheral angiopathy without gangrene; E11.40 Type 2 diabetes mellitus with diabetic neuropathy, unspecified; Z79.2 Long term (current) use of antibiotics; Z79.01 Long term (current) use of anticoagulants; Z79.4 Long term (current) use of insulin | CPT/HCPCS: 11044; 87070; 87075; 87077; 87147; 87186; 87205; 99213; 99214 ==

== ENCOUNTER → 2022-03-16 15:11 | Outpatient (CLI) | payer MEDICARE, SELFPAY | PROVIDERS: Family Provider Family Medicine; PCP Family Medicine; Referring Provider Family Medicine; Visit Provider Family Medicine | DX: E11.621 Type 2 diabetes mellitus with foot ulcer (principal); L97.514 Non-pressure chronic ulcer of other part of right foot with necrosis of bone; T87.81 Dehiscence of amputation stump; S91.302A Unspecified open wound, left foot, initial encounter; E11.69 Type 2 diabetes mellitus with other specified complication; M86.671 Other chronic osteomyelitis, right ankle and foot; M86.172 Other acute osteomyelitis, left ankle and foot; B96.29 Other Escherichia coli [E. coli] as the cause of diseases classified elsewhere; B95.61 Methicillin susceptible Staphylococcus aureus infection as the cause of diseases classified elsewhere; C43.4 Malignant melanoma of scalp and neck; S01.00XA Unspecified open wound of scalp, initial encounter; E11.51 Type 2 diabetes mellitus with diabetic peripheral angiopathy without gangrene; E11.40 Type 2 diabetes mellitus with diabetic neuropathy, unspecified; Z79.2 Long term (current) use of antibiotics; Z79.01 Long term (current) use of anticoagulants; Z89.412 Acquired absence of left great toe; Z79.4 Long term (current) use of insulin | CPT/HCPCS: 11042; 87070; 87075; 87077; 87147; 87185; 87186; 87205; 97605; 99214 ==

== ENCOUNTER → 2022-03-23 15:16 | Outpatient (CLI) | payer MEDICARE, SELFPAY | PROVIDERS: Family Provider Family Medicine; PCP Family Medicine; Referring Provider Family Medicine; Visit Provider Family Medicine | DX: E11.621 Type 2 diabetes mellitus with foot ulcer (principal); L97.514 Non-pressure chronic ulcer of other part of right foot with necrosis of bone; T87.81 Dehiscence of amputation stump; S91.302A Unspecified open wound, left foot, initial encounter; R60.0 Localized edema; E11.69 Type 2 diabetes mellitus with other specified complication; M86.671 Other chronic osteomyelitis, right ankle and foot; M86.172 Other acute osteomyelitis, left ankle and foot; B96.29 Other Escherichia coli [E. coli] as the cause of diseases classified elsewhere; B95.61 Methicillin susceptible Staphylococcus aureus infection as the cause of diseases classified elsewhere; E11.51 Type 2 diabetes mellitus with diabetic peripheral angiopathy without gangrene; E11.40 Type 2 diabetes mellitus with diabetic neuropathy, unspecified; C43.4 Malignant melanoma of scalp and neck; Z79.2 Long term (current) use of antibiotics; Z89.412 Acquired absence of left great toe | CPT/HCPCS: 11042; 97605; 99213; 99214 ==

== ENCOUNTER → 2022-04-20 15:54 | Outpatient (CLI) | payer MEDICARE, SELFPAY | PROVIDERS: Family Provider Family Medicine; PCP Family Medicine; Referring Provider Family Medicine; Visit Provider Family Medicine | DX: E11.621 Type 2 diabetes mellitus with foot ulcer (principal); L97.514 Non-pressure chronic ulcer of other part of right foot with necrosis of bone; L97.522 Non-pressure chronic ulcer of other part of left foot with fat layer exposed | CPT/HCPCS: 97605 ==

== ENCOUNTER → 2022-05-02 15:13 | Outpatient (CLI) | payer MEDICARE, SELFPAY | PROVIDERS: Family Provider Family Medicine; PCP Family Medicine; Referring Provider Family Medicine; Visit Provider Family Medicine | DX: M86.471 Chronic osteomyelitis with draining sinus, right ankle and foot (principal); T87.81 Dehiscence of amputation stump; E11.621 Type 2 diabetes mellitus with foot ulcer; L97.512 Non-pressure chronic ulcer of other part of right foot with fat layer exposed; L97.522 Non-pressure chronic ulcer of other part of left foot with fat layer exposed; E11.40 Type 2 diabetes mellitus with diabetic neuropathy, unspecified; R60.0 Localized edema | CPT/HCPCS: 11042; 87070; 87075; 87077; 87147; 87186; 87205; 99213 ==

== ENCOUNTER → 2022-05-09 15:16 | Outpatient (CLI) | payer MEDICARE, SELFPAY | PROVIDERS: Family Provider Family Medicine; PCP Family Medicine; Referring Provider Family Medicine; Visit Provider Family Medicine | DX: E11.621 Type 2 diabetes mellitus with foot ulcer (principal); L97.512 Non-pressure chronic ulcer of other part of right foot with fat layer exposed; S91.302A Unspecified open wound, left foot, initial encounter; M86.471 Chronic osteomyelitis with draining sinus, right ankle and foot; B95.61 Methicillin susceptible Staphylococcus aureus infection as the cause of diseases classified elsewhere; B95.7 Other staphylococcus as the cause of diseases classified elsewhere; R60.0 Localized edema | CPT/HCPCS: 11042; 87070; 87075; 87077; 87147; 87186; 87205; 99214 ==

== ENCOUNTER → 2022-05-29 14:54 | Outpatient (CLI) | payer MEDICARE, SELFPAY | PROVIDERS: Family Provider Family Medicine; PCP Family Medicine; Referring Provider Family Medicine; Visit Provider Family Medicine | DX: M86.471 Chronic osteomyelitis with draining sinus, right ankle and foot (principal); E11.621 Type 2 diabetes mellitus with foot ulcer; T87.81 Dehiscence of amputation stump; L97.512 Non-pressure chronic ulcer of other part of right foot with fat layer exposed; L97.522 Non-pressure chronic ulcer of other part of left foot with fat layer exposed; R60.0 Localized edema; E11.40 Type 2 diabetes mellitus with diabetic neuropathy, unspecified; B95.61 Methicillin susceptible Staphylococcus aureus infection as the cause of diseases classified elsewhere; Z79.2 Long term (current) use of antibiotics; Z89.421 Acquired absence of other right toe(s) | CPT/HCPCS: 11042; 99213; 99214 ==

== ENCOUNTER → 2022-06-12 10:34 | Outpatient (CLI) | payer MEDICARE, SELFPAY ==
--- NOTE | 2022-06-12 11:20 | DI.MRI.S_ITS ---
PROCEDURE: MR FOOT RT WO/W CON INDICATIONS: Chronic osteomyelitis with draining sinus, right ankle and f TECHNIQUE: Noncontrast coronal T1 spin echo and STIR, sagittal T1 spin echo with fat saturation and STIR, axial T1 spin echo and T2 fast spin echo with fat saturation. After the administration of contrast, axial/sagittal/coronal T1 spin echo with fat saturation through the right foot. COMPARISON: [facility], , MR FOOT RT WO/W CON, 09/22/2019, 11:26. FINDINGS: Image quality: Diagnostic. Significant patient motion is noted Bones: There is prior amputation of 2nd toe at the level of 2nd metatarsal base. There is mild marrow edema involving 2nd metatarsal base stump with subtle erosion involving surgical margin, which may indicate chronic osteomyelitis. Osteoarthritic changes are seen throughout right foot with joint space narrowing, subchondral sclerosis and edema and subcortical cystic areas. No definite bony erosive changes are noted in 1st toe, 3rd through 5th toes. No suspicious bony lesions. Severe hallux valgus is seen. No metatarsal stress fractures. Soft tissues: Mild soft tissue swelling and edema over dorsum of right foot is seen. No discrete drainable abscess collection is noted. No full-thickness tendon rupture is identified. Visualized portion of plantar fascia is intact. IMPRESSION: 1. Interval further resection of 2nd toe to the level of 2nd metatarsal base. Subtle cortical irregularity and very mild marrow edema involving 2nd metatarsal stump concerning for chronic osteomyelitis. 2. Osteoarthritic changes throughout right foot. Severe hallux valgus. No other area of definite osteomyelitis is seen. 3. Suggestion of mild cellulitis in dorsum of midfoot and forefoot. No discrete drainable abscess collection. No full-thickness tendon rupture. Dictated by: Rodney Ashby M.D. on 06/12/2022 at 12:04 Approved by: Rodney Ashby M.D. on 06/12/2022 at 12:11
== END ==
PROVIDERS: Family Provider Family Medicine; PCP Family Medicine; Referring Provider Family Medicine; Visit Provider Family Medicine
DX: M86.471 Chronic osteomyelitis with draining sinus, right ankle and foot (principal); M20.11 Hallux valgus (acquired), right foot; Z89.421 Acquired absence of other right toe(s)
CPT/HCPCS: 73720

== ENCOUNTER → 2022-06-12 14:14 | Outpatient (CLI) | payer MEDICARE, SELFPAY | PROVIDERS: Family Provider Family Medicine; PCP Family Medicine; Referring Provider Family Medicine; Visit Provider Family Medicine | DX: M86.471 Chronic osteomyelitis with draining sinus, right ankle and foot (principal); M20.11 Hallux valgus (acquired), right foot; Z89.421 Acquired absence of other right toe(s); E11.621 Type 2 diabetes mellitus with foot ulcer; T87.81 Dehiscence of amputation stump; L97.512 Non-pressure chronic ulcer of other part of right foot with fat layer exposed; L97.522 Non-pressure chronic ulcer of other part of left foot with fat layer exposed; B95.61 Methicillin susceptible Staphylococcus aureus infection as the cause of diseases classified elsewhere; Z79.2 Long term (current) use of antibiotics; E11.40 Type 2 diabetes mellitus with diabetic neuropathy, unspecified | CPT/HCPCS: 11042; 73720; 99212; 99214 ==

== ENCOUNTER → 2022-06-26 13:14 | Outpatient (CLI) | payer MEDICARE, SELFPAY | PROVIDERS: Family Provider Family Medicine; PCP Family Medicine; Referring Provider Family Medicine; Visit Provider Family Medicine | DX: M86.471 Chronic osteomyelitis with draining sinus, right ankle and foot (principal); E11.621 Type 2 diabetes mellitus with foot ulcer; L97.512 Non-pressure chronic ulcer of other part of right foot with fat layer exposed; L97.522 Non-pressure chronic ulcer of other part of left foot with fat layer exposed; B95.61 Methicillin susceptible Staphylococcus aureus infection as the cause of diseases classified elsewhere; R60.0 Localized edema; L53.9 Erythematous condition, unspecified; Z79.2 Long term (current) use of antibiotics | CPT/HCPCS: 11042; 99214 ==

== ENCOUNTER → 2022-07-11 13:19 | Outpatient (CLI) | payer MEDICARE, SELFPAY | PROVIDERS: Family Provider Family Medicine; PCP Family Medicine; Referring Provider Family Medicine; Visit Provider Family Medicine | DX: E11.621 Type 2 diabetes mellitus with foot ulcer (principal); L97.512 Non-pressure chronic ulcer of other part of right foot with fat layer exposed; L97.522 Non-pressure chronic ulcer of other part of left foot with fat layer exposed; M86.471 Chronic osteomyelitis with draining sinus, right ankle and foot; B95.61 Methicillin susceptible Staphylococcus aureus infection as the cause of diseases classified elsewhere; Z79.2 Long term (current) use of antibiotics | CPT/HCPCS: 11042; 87070; 87075; 87077; 87147; 87186; 87205; 99213; 99214 ==

== ENCOUNTER → 2022-07-26 13:25 | Outpatient (CLI) | payer MEDICARE, SELFPAY | PROVIDERS: Family Provider Family Medicine; PCP Family Medicine; Referring Provider Family Medicine; Visit Provider Surgery | DX: M86.471 Chronic osteomyelitis with draining sinus, right ankle and foot (principal); E11.621 Type 2 diabetes mellitus with foot ulcer; L97.512 Non-pressure chronic ulcer of other part of right foot with fat layer exposed; L97.522 Non-pressure chronic ulcer of other part of left foot with fat layer exposed; B95.61 Methicillin susceptible Staphylococcus aureus infection as the cause of diseases classified elsewhere; Z79.2 Long term (current) use of antibiotics | CPT/HCPCS: 97597 ==

== ENCOUNTER → 2022-08-09 13:08 | Outpatient (CLI) | payer MEDICARE, SELFPAY | PROVIDERS: Family Provider Family Medicine; PCP Family Medicine; Referring Provider Family Medicine; Visit Provider Surgery | DX: E11.621 Type 2 diabetes mellitus with foot ulcer (principal); M86.471 Chronic osteomyelitis with draining sinus, right ankle and foot; L97.512 Non-pressure chronic ulcer of other part of right foot with fat layer exposed; Z89.421 Acquired absence of other right toe(s) | CPT/HCPCS: 99212; 99213 ==

== ENCOUNTER → 2022-09-19 13:06 | Outpatient (CLI) | payer OTHER, SELFPAY | PROVIDERS: Family Provider Family Medicine; PCP Family Medicine; Referring Provider Family Medicine; Visit Provider Surgery | DX: M86.471 Chronic osteomyelitis with draining sinus, right ankle and foot (principal); E11.621 Type 2 diabetes mellitus with foot ulcer; L97.512 Non-pressure chronic ulcer of other part of right foot with fat layer exposed; B95.61 Methicillin susceptible Staphylococcus aureus infection as the cause of diseases classified elsewhere; Z79.2 Long term (current) use of antibiotics; Z89.422 Acquired absence of other left toe(s) | CPT/HCPCS: 87070; 87075; 87077; 87147; 87186; 87205; 99213; 99214 ==

== ENCOUNTER → 2022-09-25 13:02 | Outpatient (CLI) | payer OTHER, SELFPAY | PROVIDERS: Family Provider Family Medicine; PCP Family Medicine; Referring Provider Family Medicine; Visit Provider Surgery | DX: M86.471 Chronic osteomyelitis with draining sinus, right ankle and foot (principal); E11.621 Type 2 diabetes mellitus with foot ulcer; L97.512 Non-pressure chronic ulcer of other part of right foot with fat layer exposed; L97.522 Non-pressure chronic ulcer of other part of left foot with fat layer exposed; B95.61 Methicillin susceptible Staphylococcus aureus infection as the cause of diseases classified elsewhere; Z79.2 Long term (current) use of antibiotics; R60.0 Localized edema; L53.9 Erythematous condition, unspecified | CPT/HCPCS: 99213 ==

== ENCOUNTER → 2022-10-23 12:52 | Outpatient (CLI) | payer OTHER, SELFPAY | PROVIDERS: Family Provider Family Medicine; Referring Provider Internal Medicine; Visit Provider Surgery | DX: M86.471 Chronic osteomyelitis with draining sinus, right ankle and foot (principal); E11.621 Type 2 diabetes mellitus with foot ulcer; L97.512 Non-pressure chronic ulcer of other part of right foot with fat layer exposed; L97.522 Non-pressure chronic ulcer of other part of left foot with fat layer exposed; B95.61 Methicillin susceptible Staphylococcus aureus infection as the cause of diseases classified elsewhere; Z79.2 Long term (current) use of antibiotics | CPT/HCPCS: 97597; 99213 ==

== ENCOUNTER → 2022-12-27 10:00 | Outpatient (CLI) | payer OTHER, SELFPAY | PROVIDERS: Family Provider Family Medicine; PCP Internal Medicine; Referring Provider Internal Medicine; Visit Provider Surgery | DX: M86.471 Chronic osteomyelitis with draining sinus, right ankle and foot (principal); E11.621 Type 2 diabetes mellitus with foot ulcer; L97.512 Non-pressure chronic ulcer of other part of right foot with fat layer exposed; B95.61 Methicillin susceptible Staphylococcus aureus infection as the cause of diseases classified elsewhere; R60.0 Localized edema; Z79.2 Long term (current) use of antibiotics | CPT/HCPCS: 99213; 99214 ==

== ENCOUNTER → 2023-01-31 13:20 | Outpatient (CLI) | payer OTHER, SELFPAY | PROVIDERS: Family Provider Family Medicine; PCP Internal Medicine; Referring Provider Internal Medicine; Visit Provider Surgery | DX: E11.621 Type 2 diabetes mellitus with foot ulcer (principal); L97.512 Non-pressure chronic ulcer of other part of right foot with fat layer exposed; R60.0 Localized edema; S81.812A Laceration without foreign body, left lower leg, initial encounter; E11.69 Type 2 diabetes mellitus with other specified complication; M86.471 Chronic osteomyelitis with draining sinus, right ankle and foot; E11.40 Type 2 diabetes mellitus with diabetic neuropathy, unspecified; M21.6X9 Other acquired deformities of unspecified foot; Z89.412 Acquired absence of left great toe; Z89.422 Acquired absence of other left toe(s); Z89.421 Acquired absence of other right toe(s); Z87.891 Personal history of nicotine dependence; Z79.01 Long term (current) use of anticoagulants | CPT/HCPCS: 97597; 99213 ==

== ENCOUNTER → 2023-02-07 14:48 | Outpatient (CLI) | payer OTHER, SELFPAY | PROVIDERS: Family Provider Family Medicine; PCP Internal Medicine; Referring Provider Family Medicine; Visit Provider Surgery | DX: E11.621 Type 2 diabetes mellitus with foot ulcer (principal); L97.512 Non-pressure chronic ulcer of other part of right foot with fat layer exposed; S80.812A Abrasion, left lower leg, initial encounter; M86.471 Chronic osteomyelitis with draining sinus, right ankle and foot; Z79.2 Long term (current) use of antibiotics | CPT/HCPCS: 99213; 99214 ==

== ENCOUNTER → 2023-03-07 13:35 | Outpatient (CLI) | payer OTHER, SELFPAY | PROVIDERS: Family Provider Family Medicine; PCP Internal Medicine; Referring Provider Internal Medicine; Visit Provider Surgery | DX: E11.621 Type 2 diabetes mellitus with foot ulcer (principal); M86.471 Chronic osteomyelitis with draining sinus, right ankle and foot; L97.512 Non-pressure chronic ulcer of other part of right foot with fat layer exposed; S80.812A Abrasion, left lower leg, initial encounter; B95.61 Methicillin susceptible Staphylococcus aureus infection as the cause of diseases classified elsewhere; E11.40 Type 2 diabetes mellitus with diabetic neuropathy, unspecified; Z79.2 Long term (current) use of antibiotics | CPT/HCPCS: 99213 ==

== ENCOUNTER → 2023-04-09 13:54 | Outpatient (CLI) | payer OTHER, SELFPAY ==
[2023-04-09 15:08] LABS: Add Manual Diff / Slide Review NO; Basophils Absolute Auto 0 /uL (0-100); Basophils Percent Auto 0.2 % (0-2); Eosinophils Absolute Auto 200 /uL (0-450); Eosinophils Percent Auto 2.2 % (2-4); Hematocrit 44.3 % (41-53); Hemoglobin 14.6 g/dL (13.5-17.5); Lymphocytes Absolute Auto 1700 /uL (1100-4500); Mean Corpuscular HGB Conc 32.9 % (30-36); Mean Corpuscular Hemoglobin 29.3 PG (26-34); Monocytes Absolute Auto 600 /uL (0-900); Monocytes Percent Auto 7.1 % (3-14); Neutrophils Absolute Auto 6100 /uL (1500-7000); Neutrophils Percent Auto 70.5 % (50-75); Platelet Count 264 X10^3/uL (150-400); Red Blood Cell Count 4.98 X10^6/uL (4.5-5.9); Red Cell Distribution Width 14.8 % (11.6-14.8); White Blood Cell Count 8.7 X10^3/uL (4.5-11.0)
[2023-04-09 16:19] LABS: Alanine Aminotransferase 20 IU/L (<50); Albumin 3.9 g/dL (3.5-5.0); Albumin Globulin Ratio 1.3 (1.0-2.8); Alkaline Phosphatase 87 U/L (38-126); Aspartate Aminotransferase 20 IU/L (17-59); Bilirubin Total 0.5 mg/dL (0.2-1.3); Blood Urea Nitrogen 17 mg/dL (9-20); Calcium 9.2 mg/dL (8.4-10.2); Carbon Dioxide 31 mmol/L (22-32); Chloride 100 mmol/L (98-107); Estimated Glomerular Filt Rate > 60 mL/min (>60); Globulin 2.9 g/dL (1.7-4.1); Glucose 316 mg/dL (80-110); HEMOLYSIS < 15 (0-50); Potassium 4.5 mmol/L (3.4-5.1); Sodium 137 mmol/L (137-145); Total Protein 6.8 g/dL (6.3-8.2)
[2023-04-09 16:37] LABS: C-Reactive Protein Quant 0.6 mg/dL (<1.0)
== END ==
PROVIDERS: Surgery; Family Provider Family Medicine; PCP Internal Medicine; Referring Provider Family Medicine; Visit Provider Family Medicine
DX: L08.9 Local infection of the skin and subcutaneous tissue, unspecified (principal); E11.621 Type 2 diabetes mellitus with foot ulcer
CPT/HCPCS: 36415; 80053; 85025; 86140

== ENCOUNTER 2023-04-09 23:27 | Emergency (ER) | payer OTHER, SELFPAY ==
[2023-04-09 23:37] VITALS: BP 152/75; PULSE 60; RESP 16; TEMP 36.7; O2SAT 98; BMI 27.1
--- NOTE | 2023-04-09 23:42 | DI.RAD.S_ITS ---
PROCEDURE: XR SHOULDER RT MIN 2V INDICATIONS: fall/injury TECHNIQUE: 2 views of the shoulder were acquired. COMPARISON: None. FINDINGS: Bones: No fractures or dislocations. There is moderate acromioclavicular joint degeneration. No suspicious bony lesions. Visualized ribs appear intact. Soft tissues: There are calcifications along the distal rotator cuff consistent with calcific tendinitis. IMPRESSION: 1. No fracture or dislocation. Dictated by: Miguel Mortensen M.D. on 04/10/2023 at 1:02 Approved by: Miguel Mortensen M.D. on 04/10/2023 at 1:03
--- NOTE | 2023-04-10 01:52 | ED_ITS ---
HPI - Extremity Injury (Lower) General Chief Complaint: Extremity Injury, Lower Stated Complaint: fell and landed on rt shoulder and arm Time Seen by Provider: 04/09/23 23:37 Source: patient Mode of arrival: Ambulatory History of Present Illness HPI Narrative: 72-year-old male former smoker with history of atrial fibrillation and diabetes presents with family in the chief complaint of right shoulder pain. He states he had a ground level fall just prior to arrival completely related to tripping on the ground. He denies any prodromal symptoms such as dizziness, weakness or lightheadedness. He fell forward landing directly on his right shoulder and now has pain with range of motion and improvement with rest. He denies numbness, tingling or weakness. Related Data Home Medications Medication Instructions Recorded Confirmed amlodipine 10 mg tablet 10 mg PO DAILY 03/17/19 03/17/19 aspirin 81 mg tablet,delayed 81 mg PO DAILY 03/17/19 03/17/19 release carvedilol 25 mg tablet 25 mg PO BID 03/17/19 03/17/19 ciprofloxacin 500 mg/5 mL oral 500 mg PO [id number] 03/17/19 03/17/19 suspension gabapentin 300 mg capsule 300 mg PO BID 03/17/19 03/17/19 hydrochlorothiazide 25 mg tablet 25 mg PO DAILY 03/17/19 03/17/19 insulin glargine 100 unit/mL 45 unit SUBCUT BEDTIME 03/17/19 03/17/19 subcutaneous solution (Lantus U-100 Insulin) insulin regular human 100 unit/mL 20 units SUBCUT TID 03/17/19 03/17/19 injection solution lisinopril 40 mg tablet 40 mg PO DAILY 03/17/19 03/17/19 multivitamin 1 tab PO DAILY 03/17/19 03/17/19 oxybutynin chloride 5 mg tablet 5 mg PO BID 03/17/19 03/17/19 sertraline 100 mg tablet (Zoloft) 100 mg PO DAILY 03/17/19 03/17/19 sildenafil 100 mg tablet 100 mg PO DAILY PRN Erectile 03/17/19 03/17/19 Dysfunction simvastatin 40 mg tablet 40 mg PO QPM 03/17/19 03/17/19 Previous Rx's Medication Instructions Recorded doxycycline hyclate 100 mg tablet 100 mg PO BID #20 tabs 11/08/21 rivaroxaban 20 mg tablet (Xarelto) 20 mg PO QPM #30 tabs 01/04/22 Allergies Allergy/AdvReac Type Severity Reaction Status Date / Time penicillin V Allergy Severe Anaphylaxis Verified 01/04/22 18:54 sulfamethoxazole Allergy Unknown Verified 01/04/22 18:54 [From ] trimethoprim [From ] Allergy Unknown Verified 01/04/22 18:54 Review of Systems Review of Systems Narrative: GENERAL: Denies chills, fatigue, malaise, fever, sweats. HEENT: Denies sinus pain, ear pain, sore throat, difficulty swallowing, dizziness. RESPIRATORY: Denies dyspnea, cough, wheezing, hemoptysis, sputum. CARDIOVASCULAR: Denies chest pain, palpitations, orthopnea, edema, GASTROINTESTINAL: Denies nausea, vomiting, abdominal pain, diarrhea, constipation, melena. : Denies dysuria, frequency, incontinence, hematuria, urinary retention. MUSCULOSKELETAL: See HPI SKIN: Denies rash, skin lesions, or other NEUROLOGIC: See HPI PSYCHIATRIC: No concerning psychosocial issues. 12 point review of systems is negative except for those stated above Patient History Medical History CAD (coronary artery disease) Depression Diabetic neuropathy History of amputation of toe HTN (hypertension) Hyperlipidemia Orthostatic hypotension Type 2 diabetes mellitus Surgical History History of ankle surgery Social History Smoking Status: Former smoker Smoking Status: Former smoker alcohol intake frequency: 0-2 drinks per day Substance Use Type: does not use Exam Narrative Exam Narrative: GEN: AOx3 and in mild distress EYES: Pupils are equal, round, and reactive to light and accommodation. Extraoccular muscles are intact bilaterally. There is no subconjunctival hemorrhage or exudate. CHEST: Lungs are clear to auscultation bilaterally and free of wheezes, rales, or rhonchi. Heart rate is regular rhythm, there are no murmurs, clicks, rubs, or gallops. There is no chest wall tenderness. ABD: Abdomen is soft and nontender. There is no guarding or rebound. Bowel sounds are normal in all 4 quadrants. There is no mass or organomegaly. EXT: Right shoulder tender to palpate, no obvious deformity, closed, isolated and neurovascularly intact. Full but painful range of motion SKIN: Warm, pink, and dry. No erythema or rash Initial Vital Signs Initial Vital Signs: Vital Signs Temperature 98.0 F 04/09/23 23:37 Pulse Rate 60 04/09/23 23:37 Respiratory Rate 16 04/09/23 23:37 Blood Pressure 152/75 H 04/09/23 23:37 Pulse Oximetry 98 04/09/23 23:37 Oxygen Delivery Method Room Air 04/09/23 23:37 Procedures Orthopedic Splinting/Casting Injury #1: Side: right Upper Extremity Injury Location: shoulder Upper Extremity Immobilizer: sling/shoulder immobilizer Post splinting neuro exam: intact Post splinting vascular exam: intact Placed by: Nursing Course Orders Ordered: ED Orders 04/09/23 23:42 XR shoulder RT min 2V Stat Vital Signs Vital signs: Vital Signs - 8 hr 04/09/23 23:37 04/10/23 01:53 Temperature 98.0 F Pulse Rate 60 52 L Respiratory Rate 16 18 Blood Pressure 152/75 H 156/75 H Pulse Oximetry 98 95 Oxygen Delivery Method Room Air Room Air MDM - Extremity Injury (Lower) MDM Narrative Medical decision making narrative: [72] year old patient presents with shoulder pain after fall Multiple etiologies for patient's symptoms considered including, but not limited to: [Fracture versus dislocation versus other Prior Charts reviewed in our EMR Primary Historian: patient Imaging reviewed: No fracture or dislocation Patient with reassuring history and physical exam, full but painful range of motion. Imaging demonstrates no fracture or dislocation. Patient placed in splint with improved symptoms. Return precautions discussed Findings and discharge diagnosis discussed with patient/family followed by verbalization of understanding Return precautions discussed with patient/family whom verbalize understanding of diagnosis and plan Discharge Plan Departure Patient Disposition: Home Clinical Impression: Shoulder sprain Instructions: DI for Shoulder Sprain Activity Restrictions/Additional Instructions: *You have been diagnosed with [right shoulder pain after fall. As we discussed your history and physical exam are reassuring and x-ray demonstrates no sign of fracture or dislocation.] *What to do: *Please continue to take your regular medications as directed. *Please follow up with your primary care provider in 2-3 days, call for an appointment. Let them know you were seen in the Emergency Department and that we ask that you be seen in follow up. We will electronically transmit a record of today's note if your PCP is in our system *If you do not have a primary care provider please contact the [facility] Resource line at [phone]. They will ask some questions about your medical history and help get you set up with a doctor in the community. *Return to Emergency Department if you should have any new, worsening or concerning symptoms, such as [fever greater than 101 F, shaking chills, worsening pain, persistent vomiting or other bothersome symptoms] Prescriptions: No Action carvedilol 25 mg Tablet 25 mg PO BID simvastatin 40 mg Tablet 40 mg PO QPM gabapentin 300 mg Capsule 300 mg PO BID sildenafil 100 mg Tablet 100 mg PO DAILY PRN (Reason: Erectile Dysfunction) amlodipine 10 mg Tablet 10 mg PO DAILY lisinopril 40 mg Tablet 40 mg PO DAILY multivitamin Tablet 1 tab PO DAILY Lantus U-100 Insulin 100 unit/mL Solution 45 unit SUBCUT BEDTIME ciprofloxacin 500 mg/5 mL Suspension,Microcapsule Recon 500 mg PO [id number] Rx Instructions: start date 03/15/19 sertraline [Zoloft] 100 mg Tablet 100 mg PO DAILY aspirin 81 mg Tablet,Delayed Release (Dr/Ec) 81 mg PO DAILY insulin regular human 100 unit/mL Solution 20 units subcut TID hydrochlorothiazide 25 mg Tablet 25 mg PO DAILY oxybutynin chloride 5 mg Tablet 5 mg PO BID doxycycline hyclate 100 mg tablet 100 mg PO BID Qty: 20 0RF Xarelto 20 mg tablet 20 mg PO QPM Qty: 30 0RF Rx Instructions: must administer with evening meal Referrals: Mariano Marie MD [Primary Care Provider] - Stand Alone Forms: Patient Portal/API
[2023-04-10 01:53] VITALS: BP 156/75; PULSE 52; RESP 18; O2SAT 95
== END 2023-04-10 01:53 | disposition home or self-care (01) ==
PROVIDERS: Emergency Provider Emergency Medicine; Family Provider Family Medicine; PCP Internal Medicine
DX: S43.401A Unspecified sprain of right shoulder joint, initial encounter (principal); W01.0XXA Fall on same level from slipping, tripping and stumbling without subsequent striking against object, initial encounter; Z79.899 Other long term (current) drug therapy; L08.9 Local infection of the skin and subcutaneous tissue, unspecified; E11.621 Type 2 diabetes mellitus with foot ulcer
CPT/HCPCS: 36415; 73030; 80053; 85025; 86140; 99283; 99284

== ENCOUNTER → 2023-04-19 14:23 | Outpatient (CLI) | payer OTHER, SELFPAY | PROVIDERS: Family Provider Family Medicine; PCP Internal Medicine; Referring Provider Family Medicine; Visit Provider Surgery | DX: E11.621 Type 2 diabetes mellitus with foot ulcer (principal); L97.512 Non-pressure chronic ulcer of other part of right foot with fat layer exposed; M86.471 Chronic osteomyelitis with draining sinus, right ankle and foot | CPT/HCPCS: 99213 ==

== ENCOUNTER → 2023-05-15 10:28 | Outpatient (CLI) | payer OTHER, SELFPAY | PROVIDERS: Family Provider Family Medicine; PCP Internal Medicine; Referring Provider Family Medicine; Visit Provider Surgery | DX: M86.471 Chronic osteomyelitis with draining sinus, right ankle and foot (principal); E11.621 Type 2 diabetes mellitus with foot ulcer; L97.512 Non-pressure chronic ulcer of other part of right foot with fat layer exposed; Z79.2 Long term (current) use of antibiotics; L97.522 Non-pressure chronic ulcer of other part of left foot with fat layer exposed | CPT/HCPCS: 11042; 87070; 87075; 87077; 87186; 87205; 99213; 99214 ==

== ENCOUNTER → 2023-05-30 14:24 | Outpatient (CLI) | payer OTHER, SELFPAY | PROVIDERS: Family Provider Family Medicine; PCP Internal Medicine; Referring Provider Family Medicine; Visit Provider Surgery | DX: E11.621 Type 2 diabetes mellitus with foot ulcer (principal); L97.522 Non-pressure chronic ulcer of other part of left foot with fat layer exposed | CPT/HCPCS: 11042; 99213 ==

== ENCOUNTER → 2023-06-06 14:20 | Outpatient (CLI) | payer OTHER, SELFPAY | LOC: WC 14:21 | PROVIDERS: Family Provider Family Medicine; PCP Internal Medicine; Referring Provider Family Medicine; Visit Provider Surgery | DX: E11.621 Type 2 diabetes mellitus with foot ulcer (principal); L97.522 Non-pressure chronic ulcer of other part of left foot with fat layer exposed; L84 Corns and callosities; B95.61 Methicillin susceptible Staphylococcus aureus infection as the cause of diseases classified elsewhere; Z79.2 Long term (current) use of antibiotics; Z89.422 Acquired absence of other left toe(s); M86.9 Osteomyelitis, unspecified | CPT/HCPCS: 11042; 99213 ==

== ENCOUNTER → 2023-06-12 09:47 | Outpatient (CLI) | payer OTHER, SELFPAY ==
--- NOTE | 2023-06-12 09:49 | DI.RAD.S_ITS ---
PROCEDURE: XR FOOT LT MIN 3V INDICATIONS: Wound to left foot, eval for osteo TECHNIQUE: 3 views of the foot were acquired. COMPARISON: [facility], CR, XR FOOT LT MIN 3V, 03/19/2019, 15:07. [facility], CR, XR FOOT RT 2V, 04/05/2020, 12:35. [facility], CR, XR FOOT RT MIN 3V, 08/08/2019, 11:22. FINDINGS: Bones: Extensive postsurgical changes within the midfoot and hindfoot are redemonstrated. These are unchanged compared to prior. Status post amputation of the 1st digit at the mid metatarsal. There is mild lucency at the amputation site which may be postsurgical, no recent comparisons are available. Stable amputation of the 3rd digit at the metatarsophalangeal joint. Deformity of the 2nd, 4th and 5th digits is similar to prior. Decreased osseous mineralization. Soft tissues: No tibiotalar joint effusion. Achilles tendon appears normal. Atherosclerotic vascular calcifications. IMPRESSION: 1. Postsurgical changes from amputation of the 1st digit at the mid metatarsal. There is mild lucency at the amputation site which is nonspecific. Osteomyelitis cannot be excluded. Recommend correlation with more recent prior imaging if available. MRI can be obtained for further evaluation of osteomyelitis if clinically indicated. 2. Redemonstration of extensive postoperative changes to the foot which are otherwise similar in appearance to prior. Dictated by: Stevie Escalera M.D. on 06/12/2023 at 10:53 Approved by: Stevie Escalera M.D. on 06/12/2023 at 11:01
== END ==
PROVIDERS: Family Provider Family Medicine; PCP Internal Medicine; Referring Provider Surgery; Visit Provider Surgery
DX: L08.9 Local infection of the skin and subcutaneous tissue, unspecified (principal); Z89.412 Acquired absence of left great toe
CPT/HCPCS: 73630

== ENCOUNTER → 2023-06-13 13:24 | Outpatient (CLI) | payer OTHER, SELFPAY | LOC: WC 13:25 | PROVIDERS: Family Provider Family Medicine; PCP Internal Medicine; Referring Provider Family Medicine; Visit Provider Surgery | DX: E11.621 Type 2 diabetes mellitus with foot ulcer (principal); L97.512 Non-pressure chronic ulcer of other part of right foot with fat layer exposed; L97.522 Non-pressure chronic ulcer of other part of left foot with fat layer exposed; L84 Corns and callosities; E11.69 Type 2 diabetes mellitus with other specified complication; M86.471 Chronic osteomyelitis with draining sinus, right ankle and foot; E11.40 Type 2 diabetes mellitus with diabetic neuropathy, unspecified; I10 Essential (primary) hypertension; I25.119 Atherosclerotic heart disease of native coronary artery with unspecified angina pectoris; Z79.2 Long term (current) use of antibiotics; Z79.01 Long term (current) use of anticoagulants; Z89.412 Acquired absence of left great toe; Z89.422 Acquired absence of other left toe(s); Z89.421 Acquired absence of other right toe(s); Z95.1 Presence of aortocoronary bypass graft | CPT/HCPCS: 11042; 99212; 99213 ==

== ENCOUNTER → 2023-07-16 14:34 | Outpatient (CLI) | payer OTHER, SELFPAY | LOC: WC 14:35 | PROVIDERS: Family Provider Family Medicine; PCP Internal Medicine; Referring Provider Family Medicine; Visit Provider Surgery | DX: E11.621 Type 2 diabetes mellitus with foot ulcer (principal); T87.89 Other complications of amputation stump; L97.512 Non-pressure chronic ulcer of other part of right foot with fat layer exposed; L97.522 Non-pressure chronic ulcer of other part of left foot with fat layer exposed; M86.471 Chronic osteomyelitis with draining sinus, right ankle and foot; B95.61 Methicillin susceptible Staphylococcus aureus infection as the cause of diseases classified elsewhere; Z79.2 Long term (current) use of antibiotics; L53.9 Erythematous condition, unspecified; R20.9 Unspecified disturbances of skin sensation | CPT/HCPCS: 11042; 99213; 99214 ==